=== PATIENT | male | born 1950 | race Caucasian/White ===

== ENCOUNTER 2016-09-05 09:50 | Emergency (ER) | payer MEDICARE | END 2016-09-05 10:27 | disposition home or self-care (01) | LOC: ER1 09:50 | DX: L98.9 Disorder of the skin and subcutaneous tissue, unspecified (principal); I10 Essential (primary) hypertension | CPT/HCPCS: 99282 ==

== ENCOUNTER → 2020-02-27 | Outpatient (CLI) | payer OTHER ==
[~2020-02-27] MED LIST: ADVIL200 MG PO; ALLEGRA-D 24 H1 EACH PO; ASPIRIN EC81 MG PO; HUMALOG 10100 UNITS/ SC; IBUPROFEN800 MG PO; INVANZ 1 GM VIAL1 GM IV; LEVOFLOXACIN500 MG PO; LISINOPRIL40 MG PO; OMNICEF 300 MG300 MG PO
== END ==
LOC: WCC 12:51
PROC: 0KBW0ZZ Excision of Left Foot Muscle, Open Approach (ICD-10-PCS; principal; 2020-02-27)
DX: L97.423 Non-pressure chronic ulcer of left heel and midfoot with necrosis of muscle (principal); E66.09 Other obesity due to excess calories; I89.0 Lymphedema, not elsewhere classified; I10 Essential (primary) hypertension
CPT/HCPCS: 87070; 87077; 87186; 87205; G0463

== ENCOUNTER 2020-03-05 10:28 | Inpatient (IN) | payer OTHER ==
[~2020-03-05] VITALS: Ht 175.3 cm; Wt 116.7 kg
[2020-03-05] MEDS ORDERED: LISINOPRIL40 MG PO (15:26)
[2020-03-05] MEDS ORDERED: ADVIL200 MG PO (15:27)
[2020-03-05 16:28] LABS: HEMOGLOBIN 10.9 gm/dl (14.0-17.5)
[2020-03-05 16:36] LABS: RED BLOOD COUNT 3.96 M/UL (4.20-5.50); WHITE BLOOD COUNT 10.4 K/UL (4.5-11.0)
[2020-03-05 16:57] LABS: BUN/CREATININE RATIO 28 (0-10)
[2020-03-06 03:25] LABS: HEMOGLOBIN 10.9 gm/dl (14.0-17.5); RED BLOOD COUNT 3.97 M/UL (4.20-5.50); WHITE BLOOD COUNT 8.8 K/UL (4.5-11.0)
[2020-03-06 03:49] LABS: BUN/CREATININE RATIO 26 (0-10)
--- NOTE | 2020-03-07 06:18 | NUR ---
pt has vancomycin due at 6am; I called at 0515 to see if it had been collected and she said it would be done on day shift. I explained that he had antibiotic due at 6 am. A 0620 it has still not been collected. Will report to yoel ha.
[2020-03-07 06:53] LABS: HEMOGLOBIN 10.9 gm/dl (14.0-17.5); RED BLOOD COUNT 3.96 M/UL (4.20-5.50); WHITE BLOOD COUNT 7.8 K/UL (4.5-11.0)
[2020-03-08 05:49] LABS: HEMOGLOBIN 10.9 gm/dl (14.0-17.5); RED BLOOD COUNT 3.96 M/UL (4.20-5.50); WHITE BLOOD COUNT 6.2 K/UL (4.5-11.0)
--- NOTE | 2020-03-08 16:58 | NUR ---
WOUND CARE PERFORMED PER MD ORDER. PATIENT TOLERATED WELL.
[2020-03-09 06:23] LABS: HEMOGLOBIN 10.9 gm/dl (14.0-17.5); RED BLOOD COUNT 3.99 M/UL (4.20-5.50); WHITE BLOOD COUNT 9.3 K/UL (4.5-11.0)
[2020-03-09 06:40] LABS: BUN/CREATININE RATIO 25 (0-10)
--- NOTE | 2020-03-09 13:09 | NUR ---
1200: PATIENT ARRIVED TO FLOOR FROM PACU. PATIENT IS ALERT, AND VERBAL. VITAL SIGNS WITHIN NORMAL LIMITS. ANGIO SITE TO RIGHT GROIN IS DRY, NO HEMATOMA, EDEMA, BRUISING, OR BLEEDING NOTED. NO ABNORMALITIES NOTED TO RIGHT WRIST, PAST ART LINE SITE. DRESSINGS TO BILATERAL LEGS ARE CLEAN, DRY, AND IN TACT. NO ACUTE DISTRESS NOTED.
[2020-03-10 06:38] LABS: HEMOGLOBIN 10.5 gm/dl (14.0-17.5); RED BLOOD COUNT 3.82 M/UL (4.20-5.50); WHITE BLOOD COUNT 8.2 K/UL (4.5-11.0)
[2020-03-10] MEDS ORDERED: ASPIRIN EC81 MG PO (09:34)
[2020-03-10] MEDS ORDERED: INVANZ 1 GM VIAL1 GM IV (09:58)
[2020-03-10] MEDS ORDERED: LEVOFLOXACIN500 MG PO (09:58)
--- NOTE | 2020-03-10 16:48 | NUR ---
PATIENT'S WOUND CARE PERFORMED PER DR. RIVAS ORDERS.
[2020-03-11 05:57] LABS: HEMOGLOBIN 10.5 gm/dl (14.0-17.5); RED BLOOD COUNT 3.9 M/UL (4.20-5.50); WHITE BLOOD COUNT 7.5 K/UL (4.5-11.0)
[2020-03-11 06:09] LABS: BUN/CREATININE RATIO 22 (0-10)
[2020-03-12 06:52] LABS: BUN/CREATININE RATIO 19 (0-10)
[2020-03-15 03:02] LABS: BUN/CREATININE RATIO 29 (0-10)
--- NOTE | 2020-03-19 11:21 | NUR ---
PT WAS FIRST ASSESSED AT SHIFT CHANGE AT 0700 EVEN THOUGH DOCUMENTATION FOR ASSESSMENT SHOWS 1055. ARNULFO - RN
[2020-03-19] MEDS ORDERED: HUMALOG 10100 UNITS/ SC (14:50)
[2020-08-13] MEDS ORDERED: LEVOFLOXACIN500 MG PO (11:54)
== END 2020-03-22 12:03 | DRG 623 ==
LOC: M/S 13:39
PROVIDERS: Family Medicine; Internal Medicine; Physician Assistant Medical; Surgery; ADMIT Internal Medicine Infectious Disease
PROC: 02HV33Z Insertion of Infusion Device into Superior Vena Cava, Percutaneous Approach (ICD-10-PCS; 2020-03-10)
PROC: B24BZZZ Ultrasonography of Heart with Aorta (ICD-10-PCS; 2020-03-17)
PROC: B41DZZZ Fluoroscopy of Aorta and Bilateral Lower Extremity Arteries (ICD-10-PCS; principal; 2020-03-21)
PROC: 0KBW0ZZ Excision of Left Foot Muscle, Open Approach (ICD-10-PCS; 2020-03-21)
PROC: 0KU Muscles, Supplement (ICD-10-PCS; 2020-03-21)
DX: E11.69 Type 2 diabetes mellitus with other specified complication (principal); L97.429 Non-pressure chronic ulcer of left heel and midfoot with unspecified severity; M86.672 Other chronic osteomyelitis, left ankle and foot; L03.116 Cellulitis of left lower limb; I96 Gangrene, not elsewhere classified; E11.621 Type 2 diabetes mellitus with foot ulcer; I10 Essential (primary) hypertension; D64.9 Anemia, unspecified; G47.33 Obstructive sleep apnea (adult) (pediatric); I89.0 Lymphedema, not elsewhere classified; E66.9 Obesity, unspecified; Z20.828 Contact with and (suspected) exposure to other viral communicable diseases; E78.5 Hyperlipidemia, unspecified; Z83.3 Family history of diabetes mellitus; Z82.49 Family history of ischemic heart disease and other diseases of the circulatory system; Z91.19 Patient's noncompliance with other medical treatment and regimen; Z79.899 Other long term (current) drug therapy; Z68.38 Body mass index [BMI] 38.0-38.9, adult
CPT/HCPCS: ECHO; 36415; 71045; 73630; 73718; 76000; 80048; 80053; 80061; 80202; 82962; 83036; 83735; 84439; 84443; 85025; 85027; 85610; 86850; 86900; 86901; 87040; 93005; 93306; 93926; 93971; 96372; 96376; 97110-GP-CQ; 97116-GP-CQ; 97161; 97165; C1769; C1887; G0378; G0379; J1335; J1580; J1644; J1650; J2001; J2405; J2543; J2704; J2710; J2720; J3010; J3370; J7030; J7040; J7050; J7070; J7120; Q4133; Q9962; U0002

== ENCOUNTER → 2020-03-05 | Outpatient (CLI) | payer OTHER | LOC: WCC 07:55 | DX: L97.429 Non-pressure chronic ulcer of left heel and midfoot with unspecified severity (principal) ==

== ENCOUNTER → 2020-03-29 | Outpatient (CLI) | payer OTHER | LOC: WCC 08:58 | DX: L97.423 Non-pressure chronic ulcer of left heel and midfoot with necrosis of muscle (principal); I10 Essential (primary) hypertension; I89.0 Lymphedema, not elsewhere classified; E66.09 Other obesity due to excess calories | CPT/HCPCS: 97597; 97598 ==

== ENCOUNTER → 2020-04-02 | Outpatient (CLI) | payer OTHER | LOC: WCC 14:23 | PROC: 0KBW0ZZ Excision of Left Foot Muscle, Open Approach (ICD-10-PCS; principal; 2020-04-02) | DX: E11.621 Type 2 diabetes mellitus with foot ulcer (principal); L97.425 Non-pressure chronic ulcer of left heel and midfoot with muscle involvement without evidence of necrosis ==

== ENCOUNTER → 2020-04-09 | Outpatient (CLI) | payer OTHER | LOC: WCC 14:29 | PROC: 0KBT0ZZ Excision of Left Lower Leg Muscle, Open Approach (ICD-10-PCS; principal; 2020-04-09) | DX: E11.621 Type 2 diabetes mellitus with foot ulcer (principal); L97.423 Non-pressure chronic ulcer of left heel and midfoot with necrosis of muscle; L97.519 Non-pressure chronic ulcer of other part of right foot with unspecified severity; E11.52 Type 2 diabetes mellitus with diabetic peripheral angiopathy with gangrene; I96 Gangrene, not elsewhere classified; I89.0 Lymphedema, not elsewhere classified; I10 Essential (primary) hypertension; G47.30 Sleep apnea, unspecified; E66.09 Other obesity due to excess calories; Z68.32 Body mass index [BMI] 32.0-32.9, adult; Z79.2 Long term (current) use of antibiotics; Z79.899 Other long term (current) drug therapy ==

== ENCOUNTER → 2020-04-16 | Outpatient (CLI) | payer OTHER | LOC: WCC 14:30 | DX: L97.413 Non-pressure chronic ulcer of right heel and midfoot with necrosis of muscle (principal); E66.09 Other obesity due to excess calories; I89.0 Lymphedema, not elsewhere classified; I10 Essential (primary) hypertension; M86.672 Other chronic osteomyelitis, left ankle and foot ==

== ENCOUNTER → 2020-04-23 | Outpatient (CLI) | payer OTHER | LOC: WCC 13:31 | PROC: 0KBW0ZZ Excision of Left Foot Muscle, Open Approach (ICD-10-PCS; principal; 2020-04-23) | DX: E11.621 Type 2 diabetes mellitus with foot ulcer (principal); L97.423 Non-pressure chronic ulcer of left heel and midfoot with necrosis of muscle; E11.52 Type 2 diabetes mellitus with diabetic peripheral angiopathy with gangrene; I96 Gangrene, not elsewhere classified; E11.69 Type 2 diabetes mellitus with other specified complication; M86.8X7 Other osteomyelitis, ankle and foot; I87.2 Venous insufficiency (chronic) (peripheral); I89.0 Lymphedema, not elsewhere classified; I10 Essential (primary) hypertension; G47.30 Sleep apnea, unspecified; E66.09 Other obesity due to excess calories; Z68.32 Body mass index [BMI] 32.0-32.9, adult; Z79.2 Long term (current) use of antibiotics; Z79.899 Other long term (current) drug therapy ==

== ENCOUNTER → 2020-04-26 | Outpatient (CLI) | payer OTHER | LOC: EMI 15:55 | DX: M86.672 Other chronic osteomyelitis, left ankle and foot (principal); M86.8X7 Other osteomyelitis, ankle and foot | CPT/HCPCS: 73718 ==

== ENCOUNTER → 2020-04-30 | Outpatient (CLI) | payer OTHER | LOC: WCC 13:05 | DX: L97.423 Non-pressure chronic ulcer of left heel and midfoot with necrosis of muscle (principal); I89.0 Lymphedema, not elsewhere classified; M86.672 Other chronic osteomyelitis, left ankle and foot; I10 Essential (primary) hypertension; I87.2 Venous insufficiency (chronic) (peripheral); E66.09 Other obesity due to excess calories ==

== ENCOUNTER → 2020-05-14 | Outpatient (CLI) | payer OTHER | LOC: WCC 13:00 | PROC: 0KBW0ZZ Excision of Left Foot Muscle, Open Approach (ICD-10-PCS; principal; 2020-05-14) | PROC: 0KBS0ZZ Excision of Right Lower Leg Muscle, Open Approach (ICD-10-PCS; 2020-05-14) | PROC: 0KBT0ZZ Excision of Left Lower Leg Muscle, Open Approach (ICD-10-PCS; 2020-05-14) | DX: E11.621 Type 2 diabetes mellitus with foot ulcer (principal); L97.423 Non-pressure chronic ulcer of left heel and midfoot with necrosis of muscle; E11.622 Type 2 diabetes mellitus with other skin ulcer; L97.822 Non-pressure chronic ulcer of other part of left lower leg with fat layer exposed; L97.812 Non-pressure chronic ulcer of other part of right lower leg with fat layer exposed; E11.52 Type 2 diabetes mellitus with diabetic peripheral angiopathy with gangrene; I96 Gangrene, not elsewhere classified; E11.69 Type 2 diabetes mellitus with other specified complication; M86.672 Other chronic osteomyelitis, left ankle and foot; I89.0 Lymphedema, not elsewhere classified; I10 Essential (primary) hypertension; I87.2 Venous insufficiency (chronic) (peripheral); E66.09 Other obesity due to excess calories; Z68.32 Body mass index [BMI] 32.0-32.9, adult; Z79.2 Long term (current) use of antibiotics; Z79.899 Other long term (current) drug therapy; G47.30 Sleep apnea, unspecified ==

== ENCOUNTER → 2020-05-21 | Outpatient (CLI) | payer OTHER | LOC: WCC 13:42 | PROC: 0KBT0ZZ Excision of Left Lower Leg Muscle, Open Approach (ICD-10-PCS; principal; 2020-05-21) | PROC: 0KBS0ZZ Excision of Right Lower Leg Muscle, Open Approach (ICD-10-PCS; 2020-05-21) | DX: E11.621 Type 2 diabetes mellitus with foot ulcer (principal); L97.423 Non-pressure chronic ulcer of left heel and midfoot with necrosis of muscle; E11.622 Type 2 diabetes mellitus with other skin ulcer; L97.822 Non-pressure chronic ulcer of other part of left lower leg with fat layer exposed; L97.812 Non-pressure chronic ulcer of other part of right lower leg with fat layer exposed; S91.104A Unspecified open wound of right lesser toe(s) without damage to nail, initial encounter; E11.52 Type 2 diabetes mellitus with diabetic peripheral angiopathy with gangrene; I96 Gangrene, not elsewhere classified; E11.69 Type 2 diabetes mellitus with other specified complication; M86.672 Other chronic osteomyelitis, left ankle and foot; E66.09 Other obesity due to excess calories; I89.0 Lymphedema, not elsewhere classified; I10 Essential (primary) hypertension; I87.2 Venous insufficiency (chronic) (peripheral); G47.30 Sleep apnea, unspecified; Z68.32 Body mass index [BMI] 32.0-32.9, adult; Z79.2 Long term (current) use of antibiotics; Z79.899 Other long term (current) drug therapy; X58.XXXA Exposure to other specified factors, initial encounter ==

== ENCOUNTER → 2020-05-23 | Outpatient (CLI) | payer OTHER | LOC: WCC 12:57 | PROC: 2W1TX6Z Compression of Left Foot using Pressure Dressing (ICD-10-PCS; principal; 2020-05-23) | DX: E11.621 Type 2 diabetes mellitus with foot ulcer (principal); L97.423 Non-pressure chronic ulcer of left heel and midfoot with necrosis of muscle; E11.52 Type 2 diabetes mellitus with diabetic peripheral angiopathy with gangrene; I96 Gangrene, not elsewhere classified; G47.30 Sleep apnea, unspecified; I10 Essential (primary) hypertension; Z79.2 Long term (current) use of antibiotics; Z79.899 Other long term (current) drug therapy ==

== ENCOUNTER → 2020-05-28 | Outpatient (CLI) | payer OTHER | LOC: WCC 13:30 | PROC: 0JBP0ZZ Excision of Left Lower Leg Subcutaneous Tissue and Fascia, Open Approach (ICD-10-PCS; principal; 2020-05-28) | PROC: 0JBN0ZZ Excision of Right Lower Leg Subcutaneous Tissue and Fascia, Open Approach (ICD-10-PCS; principal; 2020-05-28) | PROC: 0KBW0ZZ Excision of Left Foot Muscle, Open Approach (ICD-10-PCS; principal; 2020-05-28) | DX: E11.621 Type 2 diabetes mellitus with foot ulcer (principal); L97.423 Non-pressure chronic ulcer of left heel and midfoot with necrosis of muscle; E11.622 Type 2 diabetes mellitus with other skin ulcer; L97.822 Non-pressure chronic ulcer of other part of left lower leg with fat layer exposed; L97.812 Non-pressure chronic ulcer of other part of right lower leg with fat layer exposed; E11.52 Type 2 diabetes mellitus with diabetic peripheral angiopathy with gangrene; I96 Gangrene, not elsewhere classified; E66.09 Other obesity due to excess calories; I10 Essential (primary) hypertension; E11.69 Type 2 diabetes mellitus with other specified complication; M86.672 Other chronic osteomyelitis, left ankle and foot; I87.2 Venous insufficiency (chronic) (peripheral); I89.0 Lymphedema, not elsewhere classified; Z68.32 Body mass index [BMI] 32.0-32.9, adult; Z79.2 Long term (current) use of antibiotics; Z79.899 Other long term (current) drug therapy ==

== ENCOUNTER → 2020-05-30 | Outpatient (CLI) | payer OTHER | LOC: WCC 15:20 | PROC: 2W1TX6Z Compression of Left Foot using Pressure Dressing (ICD-10-PCS; principal; 2020-05-30) | PROC: 2W1RX6Z Compression of Left Lower Leg using Pressure Dressing (ICD-10-PCS; 2020-05-30) | PROC: 2W1QX6Z Compression of Right Lower Leg using Pressure Dressing (ICD-10-PCS; 2020-05-30) | PROC: 2W1UX6Z Compression of Right Toe using Pressure Dressing (ICD-10-PCS; 2020-05-30) | DX: E11.621 Type 2 diabetes mellitus with foot ulcer (principal); L97.423 Non-pressure chronic ulcer of left heel and midfoot with necrosis of muscle; E11.622 Type 2 diabetes mellitus with other skin ulcer; L97.819 Non-pressure chronic ulcer of other part of right lower leg with unspecified severity; L97.829 Non-pressure chronic ulcer of other part of left lower leg with unspecified severity; S91.104A Unspecified open wound of right lesser toe(s) without damage to nail, initial encounter; E11.52 Type 2 diabetes mellitus with diabetic peripheral angiopathy with gangrene; I96 Gangrene, not elsewhere classified; G47.30 Sleep apnea, unspecified; I10 Essential (primary) hypertension; Z79.2 Long term (current) use of antibiotics; Z79.899 Other long term (current) drug therapy; X58.XXXA Exposure to other specified factors, initial encounter ==

== ENCOUNTER → 2020-05-30 | Outpatient (CLI) | payer OTHER | LOC: MRI 11:55 → HEART 5 11:55 | DX: M86.672 Other chronic osteomyelitis, left ankle and foot (principal); L97.423 Non-pressure chronic ulcer of left heel and midfoot with necrosis of muscle; I87.2 Venous insufficiency (chronic) (peripheral); E66.09 Other obesity due to excess calories; I89.0 Lymphedema, not elsewhere classified; I10 Essential (primary) hypertension; L97.425 Non-pressure chronic ulcer of left heel and midfoot with muscle involvement without evidence of necrosis | CPT/HCPCS: 73718; 93970 ==

== ENCOUNTER → 2020-06-04 | Outpatient (CLI) | payer OTHER | LOC: WCC 13:26 | PROC: 0KBW0ZZ Excision of Left Foot Muscle, Open Approach (ICD-10-PCS; principal; 2020-06-04) | PROC: 2W1RX6Z Compression of Left Lower Leg using Pressure Dressing (ICD-10-PCS; 2020-06-04) | PROC: 2W1QX6Z Compression of Right Lower Leg using Pressure Dressing (ICD-10-PCS; 2020-06-04) | DX: E11.621 Type 2 diabetes mellitus with foot ulcer (principal); L97.423 Non-pressure chronic ulcer of left heel and midfoot with necrosis of muscle; E11.52 Type 2 diabetes mellitus with diabetic peripheral angiopathy with gangrene; I96 Gangrene, not elsewhere classified; E11.622 Type 2 diabetes mellitus with other skin ulcer; L97.829 Non-pressure chronic ulcer of other part of left lower leg with unspecified severity; L97.819 Non-pressure chronic ulcer of other part of right lower leg with unspecified severity; S91.104A Unspecified open wound of right lesser toe(s) without damage to nail, initial encounter; I89.0 Lymphedema, not elsewhere classified; I10 Essential (primary) hypertension; M86.672 Other chronic osteomyelitis, left ankle and foot; G47.30 Sleep apnea, unspecified; I87.2 Venous insufficiency (chronic) (peripheral); E66.09 Other obesity due to excess calories; Z68.32 Body mass index [BMI] 32.0-32.9, adult; Z79.2 Long term (current) use of antibiotics; Z79.899 Other long term (current) drug therapy; X58.XXXA Exposure to other specified factors, initial encounter ==

== ENCOUNTER → 2020-06-11 | Outpatient (CLI) | payer OTHER | LOC: WCC 13:19 | PROC: 2W1QX6Z Compression of Right Lower Leg using Pressure Dressing (ICD-10-PCS; principal; 2020-06-11) | PROC: 0KBW0ZZ Excision of Left Foot Muscle, Open Approach (ICD-10-PCS; principal; 2020-06-11) | PROC: 0KBS0ZZ Excision of Right Lower Leg Muscle, Open Approach (ICD-10-PCS; principal; 2020-06-11) | PROC: 2W1RX6Z Compression of Left Lower Leg using Pressure Dressing (ICD-10-PCS; principal; 2020-06-11) | DX: E11.621 Type 2 diabetes mellitus with foot ulcer (principal); L97.423 Non-pressure chronic ulcer of left heel and midfoot with necrosis of muscle; E11.622 Type 2 diabetes mellitus with other skin ulcer; L97.813 Non-pressure chronic ulcer of other part of right lower leg with necrosis of muscle; S91.104A Unspecified open wound of right lesser toe(s) without damage to nail, initial encounter; L97.823 Non-pressure chronic ulcer of other part of left lower leg with necrosis of muscle; E11.52 Type 2 diabetes mellitus with diabetic peripheral angiopathy with gangrene; I96 Gangrene, not elsewhere classified; I89.0 Lymphedema, not elsewhere classified; I10 Essential (primary) hypertension; G47.30 Sleep apnea, unspecified; I87.2 Venous insufficiency (chronic) (peripheral); E66.09 Other obesity due to excess calories; Z68.32 Body mass index [BMI] 32.0-32.9, adult; Z79.2 Long term (current) use of antibiotics; Z79.899 Other long term (current) drug therapy; X58.XXXA Exposure to other specified factors, initial encounter ==

== ENCOUNTER → 2020-06-18 | Outpatient (CLI) | payer OTHER | LOC: WCC 13:19 | PROC: 0KBS0ZZ Excision of Right Lower Leg Muscle, Open Approach (ICD-10-PCS; principal; 2020-06-18) | PROC: 0KBV0ZZ Excision of Right Foot Muscle, Open Approach (ICD-10-PCS; principal; 2020-06-18) | PROC: 2W1RX6Z Compression of Left Lower Leg using Pressure Dressing (ICD-10-PCS; principal; 2020-06-18) | PROC: 2W1QX6Z Compression of Right Lower Leg using Pressure Dressing (ICD-10-PCS; principal; 2020-06-18) | PROC: 0KBW0ZZ Excision of Left Foot Muscle, Open Approach (ICD-10-PCS; principal; 2020-06-18) | DX: E11.621 Type 2 diabetes mellitus with foot ulcer (principal); L97.423 Non-pressure chronic ulcer of left heel and midfoot with necrosis of muscle; E11.622 Type 2 diabetes mellitus with other skin ulcer; L97.822 Non-pressure chronic ulcer of other part of left lower leg with fat layer exposed; L97.812 Non-pressure chronic ulcer of other part of right lower leg with fat layer exposed; S91.104A Unspecified open wound of right lesser toe(s) without damage to nail, initial encounter; E11.52 Type 2 diabetes mellitus with diabetic peripheral angiopathy with gangrene; I96 Gangrene, not elsewhere classified; E11.69 Type 2 diabetes mellitus with other specified complication; M86.672 Other chronic osteomyelitis, left ankle and foot; I89.0 Lymphedema, not elsewhere classified; I10 Essential (primary) hypertension; G47.30 Sleep apnea, unspecified; I87.2 Venous insufficiency (chronic) (peripheral); E66.09 Other obesity due to excess calories; Z68.32 Body mass index [BMI] 32.0-32.9, adult; Z79.2 Long term (current) use of antibiotics; Z79.899 Other long term (current) drug therapy; X58.XXXA Exposure to other specified factors, initial encounter ==

== ENCOUNTER → 2020-06-21 | Outpatient (CLI) | payer OTHER | LOC: WCC 13:27 | PROC: 2W1RX6Z Compression of Left Lower Leg using Pressure Dressing (ICD-10-PCS; principal; 2020-06-21) | PROC: 2W1QX6Z Compression of Right Lower Leg using Pressure Dressing (ICD-10-PCS; 2020-06-21) | DX: E11.621 Type 2 diabetes mellitus with foot ulcer (principal); L97.423 Non-pressure chronic ulcer of left heel and midfoot with necrosis of muscle; L97.512 Non-pressure chronic ulcer of other part of right foot with fat layer exposed; E11.622 Type 2 diabetes mellitus with other skin ulcer; L97.812 Non-pressure chronic ulcer of other part of right lower leg with fat layer exposed; L97.822 Non-pressure chronic ulcer of other part of left lower leg with fat layer exposed; E11.52 Type 2 diabetes mellitus with diabetic peripheral angiopathy with gangrene; I96 Gangrene, not elsewhere classified; E66.09 Other obesity due to excess calories; I89.0 Lymphedema, not elsewhere classified; I10 Essential (primary) hypertension; E11.69 Type 2 diabetes mellitus with other specified complication; M86.672 Other chronic osteomyelitis, left ankle and foot; I87.2 Venous insufficiency (chronic) (peripheral); G47.30 Sleep apnea, unspecified; Z79.2 Long term (current) use of antibiotics; Z79.899 Other long term (current) drug therapy; Z68.32 Body mass index [BMI] 32.0-32.9, adult ==

== ENCOUNTER → 2020-06-25 | Outpatient (CLI) | payer OTHER | LOC: WCC 13:22 | PROC: 0KBW0ZZ Excision of Left Foot Muscle, Open Approach (ICD-10-PCS; principal; 2020-06-25) | PROC: 0KBS0ZZ Excision of Right Lower Leg Muscle, Open Approach (ICD-10-PCS; 2020-06-25) | PROC: 0KBT0ZZ Excision of Left Lower Leg Muscle, Open Approach (ICD-10-PCS; 2020-06-25) | PROC: 2W1QX6Z Compression of Right Lower Leg using Pressure Dressing (ICD-10-PCS; 2020-06-25) | PROC: 0KBV0ZZ Excision of Right Foot Muscle, Open Approach (ICD-10-PCS; 2020-06-25) | PROC: 2W1RX6Z Compression of Left Lower Leg using Pressure Dressing (ICD-10-PCS; 2020-06-25) | DX: E11.621 Type 2 diabetes mellitus with foot ulcer (principal); L97.423 Non-pressure chronic ulcer of left heel and midfoot with necrosis of muscle; L97.513 Non-pressure chronic ulcer of other part of right foot with necrosis of muscle; E11.622 Type 2 diabetes mellitus with other skin ulcer; L97.823 Non-pressure chronic ulcer of other part of left lower leg with necrosis of muscle; L97.813 Non-pressure chronic ulcer of other part of right lower leg with necrosis of muscle; E11.52 Type 2 diabetes mellitus with diabetic peripheral angiopathy with gangrene; I96 Gangrene, not elsewhere classified; E11.69 Type 2 diabetes mellitus with other specified complication; M86.672 Other chronic osteomyelitis, left ankle and foot; E66.09 Other obesity due to excess calories; I89.0 Lymphedema, not elsewhere classified; I10 Essential (primary) hypertension; G47.30 Sleep apnea, unspecified; I87.2 Venous insufficiency (chronic) (peripheral); Z68.32 Body mass index [BMI] 32.0-32.9, adult; Z79.2 Long term (current) use of antibiotics; Z79.899 Other long term (current) drug therapy ==

== ENCOUNTER → 2020-06-28 | Outpatient (CLI) | payer OTHER | LOC: WCC 12:06 | PROC: 2W1RX6Z Compression of Left Lower Leg using Pressure Dressing (ICD-10-PCS; principal; 2020-06-28) | PROC: 2W1QX6Z Compression of Right Lower Leg using Pressure Dressing (ICD-10-PCS; 2020-06-28) | DX: E11.621 Type 2 diabetes mellitus with foot ulcer (principal); L97.423 Non-pressure chronic ulcer of left heel and midfoot with necrosis of muscle; L97.512 Non-pressure chronic ulcer of other part of right foot with fat layer exposed; E11.622 Type 2 diabetes mellitus with other skin ulcer; L97.822 Non-pressure chronic ulcer of other part of left lower leg with fat layer exposed; L97.812 Non-pressure chronic ulcer of other part of right lower leg with fat layer exposed; E11.52 Type 2 diabetes mellitus with diabetic peripheral angiopathy with gangrene; I96 Gangrene, not elsewhere classified; G47.30 Sleep apnea, unspecified; I10 Essential (primary) hypertension; Z79.2 Long term (current) use of antibiotics; Z79.899 Other long term (current) drug therapy ==

== ENCOUNTER → 2020-07-02 | Outpatient (CLI) | payer OTHER | LOC: WCC 13:20 | DX: E11.621 Type 2 diabetes mellitus with foot ulcer (principal); L97.429 Non-pressure chronic ulcer of left heel and midfoot with unspecified severity; L97.929 Non-pressure chronic ulcer of unspecified part of left lower leg with unspecified severity; L97.919 Non-pressure chronic ulcer of unspecified part of right lower leg with unspecified severity ==

== ENCOUNTER → 2020-07-05 | Outpatient (CLI) | payer OTHER | LOC: WCC 13:46 | PROC: 2W1RX6Z Compression of Left Lower Leg using Pressure Dressing (ICD-10-PCS; principal; 2020-07-05) | PROC: 2W1QX6Z Compression of Right Lower Leg using Pressure Dressing (ICD-10-PCS; 2020-07-05) | DX: E11.621 Type 2 diabetes mellitus with foot ulcer (principal); L97.423 Non-pressure chronic ulcer of left heel and midfoot with necrosis of muscle; L97.512 Non-pressure chronic ulcer of other part of right foot with fat layer exposed; E11.622 Type 2 diabetes mellitus with other skin ulcer; L97.822 Non-pressure chronic ulcer of other part of left lower leg with fat layer exposed; L97.812 Non-pressure chronic ulcer of other part of right lower leg with fat layer exposed; E11.52 Type 2 diabetes mellitus with diabetic peripheral angiopathy with gangrene; I96 Gangrene, not elsewhere classified; I10 Essential (primary) hypertension; G47.30 Sleep apnea, unspecified; Z79.2 Long term (current) use of antibiotics; Z79.899 Other long term (current) drug therapy ==

== ENCOUNTER → 2020-07-09 | Outpatient (CLI) | payer OTHER | LOC: WCC 13:12 | DX: E11.621 Type 2 diabetes mellitus with foot ulcer (principal); L97.425 Non-pressure chronic ulcer of left heel and midfoot with muscle involvement without evidence of necrosis; L97.922 Non-pressure chronic ulcer of unspecified part of left lower leg with fat layer exposed; L97.912 Non-pressure chronic ulcer of unspecified part of right lower leg with fat layer exposed; E11.40 Type 2 diabetes mellitus with diabetic neuropathy, unspecified; I10 Essential (primary) hypertension; E66.09 Other obesity due to excess calories ==

== ENCOUNTER → 2020-07-16 | Outpatient (CLI) | payer OTHER | END | disposition home or self-care (01) | LOC: WCC 13:18 | DX: E11.621 Type 2 diabetes mellitus with foot ulcer (principal); L97.423 Non-pressure chronic ulcer of left heel and midfoot with necrosis of muscle; E66.9 Obesity, unspecified; I89.0 Lymphedema, not elsewhere classified; I10 Essential (primary) hypertension; E11.69 Type 2 diabetes mellitus with other specified complication; M86.672 Other chronic osteomyelitis, left ankle and foot; I87.2 Venous insufficiency (chronic) (peripheral); G47.30 Sleep apnea, unspecified; Z68.32 Body mass index [BMI] 32.0-32.9, adult ==

== ENCOUNTER → 2020-07-19 | Outpatient (CLI) | payer OTHER | LOC: WCC 13:15 | DX: E11.621 Type 2 diabetes mellitus with foot ulcer (principal); L97.429 Non-pressure chronic ulcer of left heel and midfoot with unspecified severity; I10 Essential (primary) hypertension; G47.30 Sleep apnea, unspecified ==

== ENCOUNTER → 2020-07-26 | Outpatient (CLI) | payer OTHER | LOC: WCC 13:40 | DX: E11.621 Type 2 diabetes mellitus with foot ulcer (principal); I87.2 Venous insufficiency (chronic) (peripheral); L97.425 Non-pressure chronic ulcer of left heel and midfoot with muscle involvement without evidence of necrosis; L97.519 Non-pressure chronic ulcer of other part of right foot with unspecified severity; L97.929 Non-pressure chronic ulcer of unspecified part of left lower leg with unspecified severity; L97.919 Non-pressure chronic ulcer of unspecified part of right lower leg with unspecified severity; G47.30 Sleep apnea, unspecified; I10 Essential (primary) hypertension; Z79.899 Other long term (current) drug therapy ==

== ENCOUNTER → 2020-07-30 | Outpatient (CLI) | payer OTHER | LOC: WCC 13:27 | DX: E11.621 Type 2 diabetes mellitus with foot ulcer (principal); L97.423 Non-pressure chronic ulcer of left heel and midfoot with necrosis of muscle; L97.425 Non-pressure chronic ulcer of left heel and midfoot with muscle involvement without evidence of necrosis; E11.69 Type 2 diabetes mellitus with other specified complication; M86.672 Other chronic osteomyelitis, left ankle and foot; I89.0 Lymphedema, not elsewhere classified; I10 Essential (primary) hypertension; I87.2 Venous insufficiency (chronic) (peripheral); E66.09 Other obesity due to excess calories ==

== ENCOUNTER → 2020-08-02 | Outpatient (CLI) | payer OTHER | LOC: WCC 13:12 | DX: E11.621 Type 2 diabetes mellitus with foot ulcer (principal); E11.622 Type 2 diabetes mellitus with other skin ulcer; I87.2 Venous insufficiency (chronic) (peripheral); L97.429 Non-pressure chronic ulcer of left heel and midfoot with unspecified severity; L97.929 Non-pressure chronic ulcer of unspecified part of left lower leg with unspecified severity; L97.919 Non-pressure chronic ulcer of unspecified part of right lower leg with unspecified severity; G47.30 Sleep apnea, unspecified; I10 Essential (primary) hypertension ==

== ENCOUNTER → 2020-08-06 | Outpatient (CLI) | payer OTHER | LOC: WCC 13:08 | DX: E11.621 Type 2 diabetes mellitus with foot ulcer (principal); L97.423 Non-pressure chronic ulcer of left heel and midfoot with necrosis of muscle; E66.09 Other obesity due to excess calories; I10 Essential (primary) hypertension; L97.425 Non-pressure chronic ulcer of left heel and midfoot with muscle involvement without evidence of necrosis; M86.672 Other chronic osteomyelitis, left ankle and foot; I87.2 Venous insufficiency (chronic) (peripheral) ==

== ENCOUNTER → 2020-08-09 | Outpatient (CLI) | payer OTHER | LOC: WCC 13:10 | DX: E11.621 Type 2 diabetes mellitus with foot ulcer (principal); E11.622 Type 2 diabetes mellitus with other skin ulcer; L97.425 Non-pressure chronic ulcer of left heel and midfoot with muscle involvement without evidence of necrosis; L97.929 Non-pressure chronic ulcer of unspecified part of left lower leg with unspecified severity; L97.919 Non-pressure chronic ulcer of unspecified part of right lower leg with unspecified severity; G47.30 Sleep apnea, unspecified; I10 Essential (primary) hypertension | CPT/HCPCS: 87070; 87077; 87186; 87205 ==

== ENCOUNTER → 2020-08-13 | Outpatient (CLI) | payer OTHER | LOC: WCC 13:08 | DX: L97.423 Non-pressure chronic ulcer of left heel and midfoot with necrosis of muscle (principal) ==

== ENCOUNTER 2020-08-16 10:58 | Inpatient (IN) | payer OTHER ==
[~2020-08-16] VITALS: Ht 175.3 cm; Wt 119.9 kg
[~2020-08-16 10:58] MED LIST changes: -ALLEGRA-D 24 H1 EACH PO; -IBUPROFEN800 MG PO; -OMNICEF 300 MG300 MG PO
[2020-08-16 14:53] LABS: HEMOGLOBIN 11.6 gm/dl (14.0-17.5); RED BLOOD COUNT 4.15 M/UL (4.20-5.50); WHITE BLOOD COUNT 9.5 K/UL (4.5-11.0)
[2020-08-17 03:27] LABS: HEMOGLOBIN 11.2 gm/dl (14.0-17.5); RED BLOOD COUNT 4.04 M/UL (4.20-5.50); WHITE BLOOD COUNT 8.1 K/UL (4.5-11.0)
[2020-08-17] MEDS ORDERED: ALLEGRA-D 24 H1 EACH PO (12:39)
[2020-08-17] MEDS ORDERED: ADVIL200 MG PO (12:39)
[2020-08-18 05:20] LABS: HEMOGLOBIN 9.8 gm/dl (14.0-17.5); WHITE BLOOD COUNT 6.4 K/UL (4.5-11.0)
[2020-08-18 05:21] LABS: RED BLOOD COUNT 3.61 M/UL (4.20-5.50)
[2020-08-20] MEDS ORDERED: LEVOFLOXACIN500 MG PO ×2 (12:44→16:09)
--- NOTE | 2020-08-20 14:22 | NUR ---
INSTRUCTED PATIENT ON FOLLOW UP WITH W[facility]ARE [facility] CALL TOMORROW, [facility] AFTER DISCHARGE, AT [facility]. TAKE FIRST DOSE TONIGHT AND COMPLETE ALL ANTIBIOTIC ORDERD FOR 7 DAYS. VERBALIZED UNDERSTANDING. MICHAELA NGUYEN R.N.
== END 2020-08-20 15:11 | disposition home or self-care (01) | DRG 623 ==
LOC: ER1 10:58 → CDU 21:26 → M/S 21:26
PROVIDERS: Internal Medicine; Physician Assistant; ADMIT Family Medicine
PROC: 0JBN0ZZ Excision of Right Lower Leg Subcutaneous Tissue and Fascia, Open Approach (ICD-10-PCS; principal; 2020-08-13)
PROC: 0KBW0ZZ Excision of Left Foot Muscle, Open Approach (ICD-10-PCS; principal; 2020-08-13)
PROC: 0JBP0ZZ Excision of Left Lower Leg Subcutaneous Tissue and Fascia, Open Approach (ICD-10-PCS; principal; 2020-08-13)
DX: E11.621 Type 2 diabetes mellitus with foot ulcer (principal); E11.52 Type 2 diabetes mellitus with diabetic peripheral angiopathy with gangrene; M86.8X7 Other osteomyelitis, ankle and foot; L03.116 Cellulitis of left lower limb; L97.429 Non-pressure chronic ulcer of left heel and midfoot with unspecified severity; Z20.822 Contact with and (suspected) exposure to COVID-19; I89.0 Lymphedema, not elsewhere classified; E66.01 Morbid (severe) obesity due to excess calories; E11.69 Type 2 diabetes mellitus with other specified complication; N17.9 Acute kidney failure, unspecified; Z96.643 Presence of artificial hip joint, bilateral; I10 Essential (primary) hypertension; Z79.4 Long term (current) use of insulin; Z79.82 Long term (current) use of aspirin; Z82.49 Family history of ischemic heart disease and other diseases of the circulatory system; Z83.3 Family history of diabetes mellitus; Z68.39 Body mass index [BMI] 39.0-39.9, adult
CPT/HCPCS: 36415; 71045; 73700; 80048; 80053; 80202; 82962; 83036; 83605; 85025; 85027; 85652; 86140; 87040; 87070; 87077; 87186; 87205; 93971; 96365; 96366; 96367; 96375; 97110; 97116; 97161; 97530; 97530-GP-CQ; 99284; J1650; J1940; J2543; J3370; J7030; J7070; U0002

== ENCOUNTER 2020-08-27 09:22 | Emergency (ER) | payer OTHER ==
[~2020-08-27 09:22] MED LIST changes: -IBUPROFEN800 MG PO; -OMNICEF 300 MG300 MG PO
[2020-08-27 10:19] LABS: HEMOGLOBIN 11.1 gm/dl (14.0-17.5); RED BLOOD COUNT 4.05 M/UL (4.20-5.50); WHITE BLOOD COUNT 17.4 K/UL (4.5-11.0)
[2020-08-27] MEDS ORDERED: IBUPROFEN800 MG PO (13:23)
[2020-08-27] MEDS ORDERED: OMNICEF 300 MG300 MG PO (13:23)
== END 2020-08-27 14:42 | disposition home or self-care (01) ==
LOC: ER1 09:22
PROVIDERS: Emergency Medicine
DX: S22.41XA Multiple fractures of ribs, right side, initial encounter for closed fracture (principal); I87.8 Other specified disorders of veins; E11.9 Type 2 diabetes mellitus without complications; I10 Essential (primary) hypertension; W18.30XA Fall on same level, unspecified, initial encounter; Y92.002 Bathroom of unspecified non-institutional (private) residence as the place of occurrence of the external cause
CPT/HCPCS: 70450; 71045; 80053; 85025; 99284

== ENCOUNTER → 2020-08-27 | Outpatient (CLI) | payer OTHER ==
[~2020-08-27] MED LIST changes: +ALLEGRA-D 24 H1 EACH PO; +IBUPROFEN800 MG PO; +OMNICEF 300 MG300 MG PO
== END ==
LOC: WCC 15:00
DX: E11.621 Type 2 diabetes mellitus with foot ulcer (principal); E11.622 Type 2 diabetes mellitus with other skin ulcer; I87.2 Venous insufficiency (chronic) (peripheral); L97.425 Non-pressure chronic ulcer of left heel and midfoot with muscle involvement without evidence of necrosis; L97.922 Non-pressure chronic ulcer of unspecified part of left lower leg with fat layer exposed; L97.912 Non-pressure chronic ulcer of unspecified part of right lower leg with fat layer exposed; E11.69 Type 2 diabetes mellitus with other specified complication; M86.672 Other chronic osteomyelitis, left ankle and foot; E66.09 Other obesity due to excess calories; I89.0 Lymphedema, not elsewhere classified; I10 Essential (primary) hypertension; Z68.32 Body mass index [BMI] 32.0-32.9, adult; Z79.2 Long term (current) use of antibiotics; Z79.899 Other long term (current) drug therapy

== ENCOUNTER → 2020-08-30 | Outpatient (CLI) | payer OTHER ==
[~2020-08-30] MED LIST changes: +IBUPROFEN800 MG PO; +OMNICEF 300 MG300 MG PO
== END ==
LOC: WCC 13:18
DX: E11.621 Type 2 diabetes mellitus with foot ulcer (principal); E11.622 Type 2 diabetes mellitus with other skin ulcer; L97.422 Non-pressure chronic ulcer of left heel and midfoot with fat layer exposed; L97.929 Non-pressure chronic ulcer of unspecified part of left lower leg with unspecified severity; L97.919 Non-pressure chronic ulcer of unspecified part of right lower leg with unspecified severity; G47.30 Sleep apnea, unspecified; I10 Essential (primary) hypertension

== ENCOUNTER → 2020-09-03 | Outpatient (CLI) | payer OTHER | LOC: WCC 13:28 | DX: E11.621 Type 2 diabetes mellitus with foot ulcer (principal); E11.622 Type 2 diabetes mellitus with other skin ulcer; I87.2 Venous insufficiency (chronic) (peripheral); L97.425 Non-pressure chronic ulcer of left heel and midfoot with muscle involvement without evidence of necrosis; L97.922 Non-pressure chronic ulcer of unspecified part of left lower leg with fat layer exposed; L97.912 Non-pressure chronic ulcer of unspecified part of right lower leg with fat layer exposed; E11.69 Type 2 diabetes mellitus with other specified complication; M86.672 Other chronic osteomyelitis, left ankle and foot; E66.09 Other obesity due to excess calories; I89.0 Lymphedema, not elsewhere classified; I10 Essential (primary) hypertension; Z68.32 Body mass index [BMI] 32.0-32.9, adult; Z79.2 Long term (current) use of antibiotics; Z79.899 Other long term (current) drug therapy | CPT/HCPCS: 87070; 87077; 87186; 87205 ==

== ENCOUNTER → 2020-09-07 | Outpatient (CLI) | payer OTHER | LOC: WCC 10:13 | DX: E11.621 Type 2 diabetes mellitus with foot ulcer (principal); E11.622 Type 2 diabetes mellitus with other skin ulcer; L97.422 Non-pressure chronic ulcer of left heel and midfoot with fat layer exposed; L97.929 Non-pressure chronic ulcer of unspecified part of left lower leg with unspecified severity; L97.919 Non-pressure chronic ulcer of unspecified part of right lower leg with unspecified severity; I10 Essential (primary) hypertension; G47.30 Sleep apnea, unspecified ==

== ENCOUNTER → 2020-09-11 | Outpatient (CLI) | payer OTHER | LOC: WCC 13:31 | DX: E11.621 Type 2 diabetes mellitus with foot ulcer (principal); L97.423 Non-pressure chronic ulcer of left heel and midfoot with necrosis of muscle; E66.09 Other obesity due to excess calories; L97.425 Non-pressure chronic ulcer of left heel and midfoot with muscle involvement without evidence of necrosis; I89.0 Lymphedema, not elsewhere classified; I10 Essential (primary) hypertension; M86.672 Other chronic osteomyelitis, left ankle and foot; I87.2 Venous insufficiency (chronic) (peripheral) ==

== ENCOUNTER → 2020-09-14 | Outpatient (CLI) | payer OTHER | LOC: WCC 11:45 | DX: E11.621 Type 2 diabetes mellitus with foot ulcer (principal); E11.622 Type 2 diabetes mellitus with other skin ulcer; L97.422 Non-pressure chronic ulcer of left heel and midfoot with fat layer exposed; L97.929 Non-pressure chronic ulcer of unspecified part of left lower leg with unspecified severity; L97.919 Non-pressure chronic ulcer of unspecified part of right lower leg with unspecified severity; G47.30 Sleep apnea, unspecified; I10 Essential (primary) hypertension ==

== ENCOUNTER → 2020-09-17 | Outpatient (CLI) | payer OTHER | LOC: WCC 13:30 | PROC: 0KBW0ZZ Excision of Left Foot Muscle, Open Approach (ICD-10-PCS; principal; 2020-09-17) | PROC: 0KBS0ZZ Excision of Right Lower Leg Muscle, Open Approach (ICD-10-PCS; 2020-09-17) | PROC: 0KBT0ZZ Excision of Left Lower Leg Muscle, Open Approach (ICD-10-PCS; 2020-09-17) | PROC: 0JBN0ZZ Excision of Right Lower Leg Subcutaneous Tissue and Fascia, Open Approach (ICD-10-PCS; 2020-09-17) | PROC: 2W1RX6Z Compression of Left Lower Leg using Pressure Dressing (ICD-10-PCS; 2020-09-17) | PROC: 2W1QX6Z Compression of Right Lower Leg using Pressure Dressing (ICD-10-PCS; 2020-09-17) | DX: E11.621 Type 2 diabetes mellitus with foot ulcer (principal); L97.423 Non-pressure chronic ulcer of left heel and midfoot with necrosis of muscle; E11.622 Type 2 diabetes mellitus with other skin ulcer; L97.822 Non-pressure chronic ulcer of other part of left lower leg with fat layer exposed; L97.812 Non-pressure chronic ulcer of other part of right lower leg with fat layer exposed; E11.52 Type 2 diabetes mellitus with diabetic peripheral angiopathy with gangrene; I96 Gangrene, not elsewhere classified; I89.0 Lymphedema, not elsewhere classified; I10 Essential (primary) hypertension; E11.69 Type 2 diabetes mellitus with other specified complication; M86.672 Other chronic osteomyelitis, left ankle and foot; I87.2 Venous insufficiency (chronic) (peripheral); E66.09 Other obesity due to excess calories; Z68.32 Body mass index [BMI] 32.0-32.9, adult; Z79.2 Long term (current) use of antibiotics; Z79.899 Other long term (current) drug therapy; G47.30 Sleep apnea, unspecified ==

== ENCOUNTER → 2020-09-20 | Outpatient (CLI) | payer MEDICARE, OTHER | LOC: WCC 13:18 | PROC: 2W1RX6Z Compression of Left Lower Leg using Pressure Dressing (ICD-10-PCS; principal; 2020-09-20) | PROC: 2W1QX6Z Compression of Right Lower Leg using Pressure Dressing (ICD-10-PCS; 2020-09-20) | DX: E11.621 Type 2 diabetes mellitus with foot ulcer (principal); L97.423 Non-pressure chronic ulcer of left heel and midfoot with necrosis of muscle; E11.622 Type 2 diabetes mellitus with other skin ulcer; L97.811 Non-pressure chronic ulcer of other part of right lower leg limited to breakdown of skin; L97.821 Non-pressure chronic ulcer of other part of left lower leg limited to breakdown of skin; E11.52 Type 2 diabetes mellitus with diabetic peripheral angiopathy with gangrene; I96 Gangrene, not elsewhere classified; G47.30 Sleep apnea, unspecified; I10 Essential (primary) hypertension; Z79.2 Long term (current) use of antibiotics; Z79.899 Other long term (current) drug therapy ==

== ENCOUNTER → 2020-09-25 | Outpatient (CLI) | payer MEDICARE, OTHER | LOC: WCC 09:54 | PROC: 2W1RX6Z Compression of Left Lower Leg using Pressure Dressing (ICD-10-PCS; principal; 2020-09-25) | PROC: 0JBP0ZZ Excision of Left Lower Leg Subcutaneous Tissue and Fascia, Open Approach (ICD-10-PCS; principal; 2020-09-25) | PROC: 0JBN0ZZ Excision of Right Lower Leg Subcutaneous Tissue and Fascia, Open Approach (ICD-10-PCS; principal; 2020-09-25) | PROC: 2W1QX6Z Compression of Right Lower Leg using Pressure Dressing (ICD-10-PCS; principal; 2020-09-25) | PROC: 0KBW0ZZ Excision of Left Foot Muscle, Open Approach (ICD-10-PCS; principal; 2020-09-25) | DX: E11.622 Type 2 diabetes mellitus with other skin ulcer (principal); L97.822 Non-pressure chronic ulcer of other part of left lower leg with fat layer exposed; L97.812 Non-pressure chronic ulcer of other part of right lower leg with fat layer exposed; E11.621 Type 2 diabetes mellitus with foot ulcer; L97.423 Non-pressure chronic ulcer of left heel and midfoot with necrosis of muscle; E11.52 Type 2 diabetes mellitus with diabetic peripheral angiopathy with gangrene; I96 Gangrene, not elsewhere classified; I89.0 Lymphedema, not elsewhere classified; I10 Essential (primary) hypertension; E11.69 Type 2 diabetes mellitus with other specified complication; M86.672 Other chronic osteomyelitis, left ankle and foot; I87.2 Venous insufficiency (chronic) (peripheral); G47.30 Sleep apnea, unspecified; E66.09 Other obesity due to excess calories; Z68.32 Body mass index [BMI] 32.0-32.9, adult; Z79.2 Long term (current) use of antibiotics; Z79.899 Other long term (current) drug therapy ==

== ENCOUNTER → 2020-09-28 | Outpatient (CLI) | payer MEDICARE, OTHER | LOC: WCC 09:31 | PROC: 2W1RX6Z Compression of Left Lower Leg using Pressure Dressing (ICD-10-PCS; principal; 2020-09-28) | PROC: 2W1QX6Z Compression of Right Lower Leg using Pressure Dressing (ICD-10-PCS; 2020-09-28) | DX: E11.621 Type 2 diabetes mellitus with foot ulcer (principal); L97.423 Non-pressure chronic ulcer of left heel and midfoot with necrosis of muscle; E11.622 Type 2 diabetes mellitus with other skin ulcer; L97.821 Non-pressure chronic ulcer of other part of left lower leg limited to breakdown of skin; L97.811 Non-pressure chronic ulcer of other part of right lower leg limited to breakdown of skin; E11.52 Type 2 diabetes mellitus with diabetic peripheral angiopathy with gangrene; I96 Gangrene, not elsewhere classified; G47.30 Sleep apnea, unspecified; I10 Essential (primary) hypertension; Z79.899 Other long term (current) drug therapy ==

== ENCOUNTER → 2020-10-01 | Outpatient (CLI) | payer MEDICARE, OTHER | LOC: WCC 13:28 | PROC: 0KBW0ZZ Excision of Left Foot Muscle, Open Approach (ICD-10-PCS; principal; 2020-10-01) | PROC: 2W1RX6Z Compression of Left Lower Leg using Pressure Dressing (ICD-10-PCS; 2020-10-01) | PROC: 2W1QX6Z Compression of Right Lower Leg using Pressure Dressing (ICD-10-PCS; 2020-10-01) | PROC: 0JBP0ZZ Excision of Left Lower Leg Subcutaneous Tissue and Fascia, Open Approach (ICD-10-PCS; 2020-10-01) | PROC: 0JBN0ZZ Excision of Right Lower Leg Subcutaneous Tissue and Fascia, Open Approach (ICD-10-PCS; 2020-10-01) | DX: E11.622 Type 2 diabetes mellitus with other skin ulcer (principal); L97.822 Non-pressure chronic ulcer of other part of left lower leg with fat layer exposed; L97.812 Non-pressure chronic ulcer of other part of right lower leg with fat layer exposed; E11.621 Type 2 diabetes mellitus with foot ulcer; L97.423 Non-pressure chronic ulcer of left heel and midfoot with necrosis of muscle; E11.52 Type 2 diabetes mellitus with diabetic peripheral angiopathy with gangrene; I96 Gangrene, not elsewhere classified; I89.0 Lymphedema, not elsewhere classified; E11.69 Type 2 diabetes mellitus with other specified complication; M86.672 Other chronic osteomyelitis, left ankle and foot; I10 Essential (primary) hypertension; I87.2 Venous insufficiency (chronic) (peripheral); G47.30 Sleep apnea, unspecified; E66.09 Other obesity due to excess calories; Z68.32 Body mass index [BMI] 32.0-32.9, adult; Z79.899 Other long term (current) drug therapy ==

== ENCOUNTER → 2020-10-05 | Outpatient (CLI) | payer MEDICARE, OTHER | LOC: WCC 09:30 | PROC: 2W1RX6Z Compression of Left Lower Leg using Pressure Dressing (ICD-10-PCS; principal; 2020-10-05) | PROC: 2W1QX6Z Compression of Right Lower Leg using Pressure Dressing (ICD-10-PCS; 2020-10-05) | DX: E11.621 Type 2 diabetes mellitus with foot ulcer (principal); L97.423 Non-pressure chronic ulcer of left heel and midfoot with necrosis of muscle; E11.622 Type 2 diabetes mellitus with other skin ulcer; L97.821 Non-pressure chronic ulcer of other part of left lower leg limited to breakdown of skin; L97.811 Non-pressure chronic ulcer of other part of right lower leg limited to breakdown of skin; I96 Gangrene, not elsewhere classified; E11.52 Type 2 diabetes mellitus with diabetic peripheral angiopathy with gangrene; G47.30 Sleep apnea, unspecified; I10 Essential (primary) hypertension; Z79.899 Other long term (current) drug therapy ==

== ENCOUNTER → 2020-10-15 | Outpatient (CLI) | payer MEDICARE, OTHER | LOC: WCC 12:16 | PROC: 0JBR0ZZ Excision of Left Foot Subcutaneous Tissue and Fascia, Open Approach (ICD-10-PCS; principal; 2020-10-15) | PROC: 0JBP0ZZ Excision of Left Lower Leg Subcutaneous Tissue and Fascia, Open Approach (ICD-10-PCS; principal; 2020-10-15) | PROC: 2W1QX6Z Compression of Right Lower Leg using Pressure Dressing (ICD-10-PCS; principal; 2020-10-15) | PROC: 0JBN0ZZ Excision of Right Lower Leg Subcutaneous Tissue and Fascia, Open Approach (ICD-10-PCS; principal; 2020-10-15) | PROC: 2W1RX6Z Compression of Left Lower Leg using Pressure Dressing (ICD-10-PCS; principal; 2020-10-15) | DX: E11.621 Type 2 diabetes mellitus with foot ulcer (principal); L97.425 Non-pressure chronic ulcer of left heel and midfoot with muscle involvement without evidence of necrosis; E11.622 Type 2 diabetes mellitus with other skin ulcer; L97.822 Non-pressure chronic ulcer of other part of left lower leg with fat layer exposed; L97.812 Non-pressure chronic ulcer of other part of right lower leg with fat layer exposed; E11.69 Type 2 diabetes mellitus with other specified complication; M86.672 Other chronic osteomyelitis, left ankle and foot; I89.0 Lymphedema, not elsewhere classified; I10 Essential (primary) hypertension; I87.2 Venous insufficiency (chronic) (peripheral); G47.30 Sleep apnea, unspecified; E66.09 Other obesity due to excess calories; Z68.32 Body mass index [BMI] 32.0-32.9, adult; Z79.899 Other long term (current) drug therapy ==

== ENCOUNTER → 2020-10-22 | Outpatient (CLI) | payer MEDICARE, OTHER | LOC: WCC 12:35 | PROC: 0JBR0ZZ Excision of Left Foot Subcutaneous Tissue and Fascia, Open Approach (ICD-10-PCS; principal; 2020-10-22) | PROC: 0JBN0ZZ Excision of Right Lower Leg Subcutaneous Tissue and Fascia, Open Approach (ICD-10-PCS; 2020-10-22) | PROC: 0JBP0ZZ Excision of Left Lower Leg Subcutaneous Tissue and Fascia, Open Approach (ICD-10-PCS; 2020-10-22) | DX: E11.621 Type 2 diabetes mellitus with foot ulcer (principal); L97.425 Non-pressure chronic ulcer of left heel and midfoot with muscle involvement without evidence of necrosis; E11.622 Type 2 diabetes mellitus with other skin ulcer; L97.812 Non-pressure chronic ulcer of other part of right lower leg with fat layer exposed; L97.822 Non-pressure chronic ulcer of other part of left lower leg with fat layer exposed; I89.0 Lymphedema, not elsewhere classified; I87.2 Venous insufficiency (chronic) (peripheral); I10 Essential (primary) hypertension; G47.30 Sleep apnea, unspecified; E11.69 Type 2 diabetes mellitus with other specified complication; M86.672 Other chronic osteomyelitis, left ankle and foot; E66.09 Other obesity due to excess calories; Z68.32 Body mass index [BMI] 32.0-32.9, adult; Z79.899 Other long term (current) drug therapy ==

== ENCOUNTER → 2020-10-29 | Outpatient (CLI) | payer MEDICARE, OTHER | LOC: WCC 13:24 | PROC: 0JBR0ZZ Excision of Left Foot Subcutaneous Tissue and Fascia, Open Approach (ICD-10-PCS; principal; 2020-10-29) | PROC: 0JBN0ZZ Excision of Right Lower Leg Subcutaneous Tissue and Fascia, Open Approach (ICD-10-PCS; 2020-10-29) | PROC: 0JBP0ZZ Excision of Left Lower Leg Subcutaneous Tissue and Fascia, Open Approach (ICD-10-PCS; 2020-10-29) | DX: E11.621 Type 2 diabetes mellitus with foot ulcer (principal); L97.422 Non-pressure chronic ulcer of left heel and midfoot with fat layer exposed; E11.622 Type 2 diabetes mellitus with other skin ulcer; L97.822 Non-pressure chronic ulcer of other part of left lower leg with fat layer exposed; L97.812 Non-pressure chronic ulcer of other part of right lower leg with fat layer exposed; I87.2 Venous insufficiency (chronic) (peripheral); G47.30 Sleep apnea, unspecified; E11.69 Type 2 diabetes mellitus with other specified complication; M86.672 Other chronic osteomyelitis, left ankle and foot; I10 Essential (primary) hypertension; I89.0 Lymphedema, not elsewhere classified; E66.09 Other obesity due to excess calories; Z68.32 Body mass index [BMI] 32.0-32.9, adult; Z79.899 Other long term (current) drug therapy ==

== ENCOUNTER → 2020-11-05 | Outpatient (CLI) | payer MEDICARE, OTHER | LOC: WCC 13:13 | PROC: 0JBR0ZZ Excision of Left Foot Subcutaneous Tissue and Fascia, Open Approach (ICD-10-PCS; principal; 2020-11-05) | PROC: 0KBS0ZZ Excision of Right Lower Leg Muscle, Open Approach (ICD-10-PCS; 2020-11-05) | PROC: 0JBP0ZZ Excision of Left Lower Leg Subcutaneous Tissue and Fascia, Open Approach (ICD-10-PCS; 2020-11-05) | DX: E11.621 Type 2 diabetes mellitus with foot ulcer (principal); L97.423 Non-pressure chronic ulcer of left heel and midfoot with necrosis of muscle; E11.622 Type 2 diabetes mellitus with other skin ulcer; L97.822 Non-pressure chronic ulcer of other part of left lower leg with fat layer exposed; L97.812 Non-pressure chronic ulcer of other part of right lower leg with fat layer exposed; E11.52 Type 2 diabetes mellitus with diabetic peripheral angiopathy with gangrene; I96 Gangrene, not elsewhere classified; I89.0 Lymphedema, not elsewhere classified; I10 Essential (primary) hypertension; E11.69 Type 2 diabetes mellitus with other specified complication; M86.672 Other chronic osteomyelitis, left ankle and foot; G47.30 Sleep apnea, unspecified; E66.09 Other obesity due to excess calories; Z68.32 Body mass index [BMI] 32.0-32.9, adult; Z79.899 Other long term (current) drug therapy ==

== ENCOUNTER → 2020-11-12 | Outpatient (CLI) | payer MEDICARE | LOC: WCC 13:22 | PROC: 0JBR0ZZ Excision of Left Foot Subcutaneous Tissue and Fascia, Open Approach (ICD-10-PCS; principal; 2020-11-12) | PROC: 0JBN0ZZ Excision of Right Lower Leg Subcutaneous Tissue and Fascia, Open Approach (ICD-10-PCS; 2020-11-12) | PROC: 0JBP0ZZ Excision of Left Lower Leg Subcutaneous Tissue and Fascia, Open Approach (ICD-10-PCS; 2020-11-12) | DX: E11.621 Type 2 diabetes mellitus with foot ulcer (principal); L97.423 Non-pressure chronic ulcer of left heel and midfoot with necrosis of muscle; E11.622 Type 2 diabetes mellitus with other skin ulcer; L97.822 Non-pressure chronic ulcer of other part of left lower leg with fat layer exposed; L97.812 Non-pressure chronic ulcer of other part of right lower leg with fat layer exposed; E11.52 Type 2 diabetes mellitus with diabetic peripheral angiopathy with gangrene; I96 Gangrene, not elsewhere classified; E11.69 Type 2 diabetes mellitus with other specified complication; M86.672 Other chronic osteomyelitis, left ankle and foot; I87.2 Venous insufficiency (chronic) (peripheral); I89.0 Lymphedema, not elsewhere classified; I10 Essential (primary) hypertension; G47.30 Sleep apnea, unspecified; E66.09 Other obesity due to excess calories; Z68.32 Body mass index [BMI] 32.0-32.9, adult; Z79.899 Other long term (current) drug therapy ==

== ENCOUNTER → 2020-11-15 | Outpatient (CLI) | payer MEDICARE, OTHER | LOC: WCC 13:45 | PROC: 2W1RX6Z Compression of Left Lower Leg using Pressure Dressing (ICD-10-PCS; principal; 2020-11-15) | PROC: 2W1QX6Z Compression of Right Lower Leg using Pressure Dressing (ICD-10-PCS; 2020-11-15) | DX: E11.621 Type 2 diabetes mellitus with foot ulcer (principal); L97.423 Non-pressure chronic ulcer of left heel and midfoot with necrosis of muscle; E11.622 Type 2 diabetes mellitus with other skin ulcer; L97.822 Non-pressure chronic ulcer of other part of left lower leg with fat layer exposed; L97.812 Non-pressure chronic ulcer of other part of right lower leg with fat layer exposed; E11.52 Type 2 diabetes mellitus with diabetic peripheral angiopathy with gangrene; I96 Gangrene, not elsewhere classified; G47.30 Sleep apnea, unspecified; I10 Essential (primary) hypertension; Z79.899 Other long term (current) drug therapy ==

== ENCOUNTER → 2020-11-29 | Outpatient (CLI) | payer MEDICARE, OTHER | LOC: WCC 13:00 | DX: E11.621 Type 2 diabetes mellitus with foot ulcer (principal); E11.622 Type 2 diabetes mellitus with other skin ulcer; I87.2 Venous insufficiency (chronic) (peripheral); L97.425 Non-pressure chronic ulcer of left heel and midfoot with muscle involvement without evidence of necrosis; L97.922 Non-pressure chronic ulcer of unspecified part of left lower leg with fat layer exposed; L97.912 Non-pressure chronic ulcer of unspecified part of right lower leg with fat layer exposed; E11.69 Type 2 diabetes mellitus with other specified complication; M86.672 Other chronic osteomyelitis, left ankle and foot; E66.09 Other obesity due to excess calories; I89.0 Lymphedema, not elsewhere classified; I10 Essential (primary) hypertension; Z68.32 Body mass index [BMI] 32.0-32.9, adult; Z79.899 Other long term (current) drug therapy ==

== ENCOUNTER → 2020-12-03 | Outpatient (CLI) | payer MEDICARE, OTHER | LOC: WCC 10:16 | DX: E11.621 Type 2 diabetes mellitus with foot ulcer (principal); E11.622 Type 2 diabetes mellitus with other skin ulcer; I87.2 Venous insufficiency (chronic) (peripheral); L97.425 Non-pressure chronic ulcer of left heel and midfoot with muscle involvement without evidence of necrosis; L97.922 Non-pressure chronic ulcer of unspecified part of left lower leg with fat layer exposed; L97.912 Non-pressure chronic ulcer of unspecified part of right lower leg with fat layer exposed; E11.69 Type 2 diabetes mellitus with other specified complication; M86.672 Other chronic osteomyelitis, left ankle and foot; I89.0 Lymphedema, not elsewhere classified; I10 Essential (primary) hypertension; E66.09 Other obesity due to excess calories; Z68.32 Body mass index [BMI] 32.0-32.9, adult; Z79.899 Other long term (current) drug therapy ==

== ENCOUNTER → 2020-12-10 | Outpatient (CLI) | payer MEDICARE, OTHER | LOC: WCC 11:41 | DX: E11.621 Type 2 diabetes mellitus with foot ulcer (principal); L97.425 Non-pressure chronic ulcer of left heel and midfoot with muscle involvement without evidence of necrosis; I87.2 Venous insufficiency (chronic) (peripheral); L97.912 Non-pressure chronic ulcer of unspecified part of right lower leg with fat layer exposed; L97.921 Non-pressure chronic ulcer of unspecified part of left lower leg limited to breakdown of skin; I10 Essential (primary) hypertension; Z91.19 Patient's noncompliance with other medical treatment and regimen; I89.0 Lymphedema, not elsewhere classified; E11.69 Type 2 diabetes mellitus with other specified complication; M86.672 Other chronic osteomyelitis, left ankle and foot; E66.09 Other obesity due to excess calories; Z68.32 Body mass index [BMI] 32.0-32.9, adult ==

== ENCOUNTER → 2020-12-13 | Outpatient (CLI) | payer MEDICARE, OTHER | LOC: WCC 08:51 | DX: E11.621 Type 2 diabetes mellitus with foot ulcer (principal); L97.422 Non-pressure chronic ulcer of left heel and midfoot with fat layer exposed; L97.821 Non-pressure chronic ulcer of other part of left lower leg limited to breakdown of skin; G47.30 Sleep apnea, unspecified; I10 Essential (primary) hypertension ==

== ENCOUNTER → 2020-12-17 | Outpatient (CLI) | payer MEDICARE, OTHER | LOC: WCC 09:38 | DX: E11.621 Type 2 diabetes mellitus with foot ulcer (principal); L97.525 Non-pressure chronic ulcer of other part of left foot with muscle involvement without evidence of necrosis; I87.2 Venous insufficiency (chronic) (peripheral); L97.922 Non-pressure chronic ulcer of unspecified part of left lower leg with fat layer exposed; L97.912 Non-pressure chronic ulcer of unspecified part of right lower leg with fat layer exposed; L97.425 Non-pressure chronic ulcer of left heel and midfoot with muscle involvement without evidence of necrosis; E66.09 Other obesity due to excess calories; I10 Essential (primary) hypertension; I89.0 Lymphedema, not elsewhere classified; E11.69 Type 2 diabetes mellitus with other specified complication; M86.672 Other chronic osteomyelitis, left ankle and foot ==

== ENCOUNTER → 2020-12-20 | Outpatient (CLI) | payer MEDICARE, OTHER | LOC: WCC 13:43 | DX: E11.621 Type 2 diabetes mellitus with foot ulcer (principal); E11.622 Type 2 diabetes mellitus with other skin ulcer; L97.425 Non-pressure chronic ulcer of left heel and midfoot with muscle involvement without evidence of necrosis; I87.2 Venous insufficiency (chronic) (peripheral); L97.922 Non-pressure chronic ulcer of unspecified part of left lower leg with fat layer exposed; L97.912 Non-pressure chronic ulcer of unspecified part of right lower leg with fat layer exposed; I10 Essential (primary) hypertension; G47.30 Sleep apnea, unspecified ==

== ENCOUNTER → 2020-12-24 | Outpatient (CLI) | payer MEDICARE, OTHER | LOC: WCC 13:15 | DX: E11.621 Type 2 diabetes mellitus with foot ulcer (principal); E11.622 Type 2 diabetes mellitus with other skin ulcer; I87.2 Venous insufficiency (chronic) (peripheral); L97.425 Non-pressure chronic ulcer of left heel and midfoot with muscle involvement without evidence of necrosis; L97.925 Non-pressure chronic ulcer of unspecified part of left lower leg with muscle involvement without evidence of necrosis; L97.915 Non-pressure chronic ulcer of unspecified part of right lower leg with muscle involvement without evidence of necrosis; E11.69 Type 2 diabetes mellitus with other specified complication; M86.672 Other chronic osteomyelitis, left ankle and foot; E66.09 Other obesity due to excess calories; I89.0 Lymphedema, not elsewhere classified; I10 Essential (primary) hypertension; Z68.32 Body mass index [BMI] 32.0-32.9, adult; Z79.899 Other long term (current) drug therapy ==

== ENCOUNTER → 2020-12-27 | Outpatient (CLI) | payer OTHER | LOC: WCC 11:52 | DX: E11.621 Type 2 diabetes mellitus with foot ulcer (principal); E11.622 Type 2 diabetes mellitus with other skin ulcer; I87.2 Venous insufficiency (chronic) (peripheral); L97.425 Non-pressure chronic ulcer of left heel and midfoot with muscle involvement without evidence of necrosis; L97.922 Non-pressure chronic ulcer of unspecified part of left lower leg with fat layer exposed; L97.912 Non-pressure chronic ulcer of unspecified part of right lower leg with fat layer exposed; I10 Essential (primary) hypertension; G47.30 Sleep apnea, unspecified; Z79.899 Other long term (current) drug therapy ==

== ENCOUNTER → 2020-12-31 | Outpatient (CLI) | payer OTHER | LOC: OPSV 14:00 | DX: L97.423 Non-pressure chronic ulcer of left heel and midfoot with necrosis of muscle (principal); I89.0 Lymphedema, not elsewhere classified; I87.2 Venous insufficiency (chronic) (peripheral) | CPT/HCPCS: G0463 ==

== ENCOUNTER → 2021-01-03 | Outpatient (CLI) | payer OTHER | LOC: OPSV 01-02 14:00 | DX: L97.423 Non-pressure chronic ulcer of left heel and midfoot with necrosis of muscle (principal); I89.0 Lymphedema, not elsewhere classified; I87.2 Venous insufficiency (chronic) (peripheral) | CPT/HCPCS: G0463 ==

== ENCOUNTER → 2021-01-07 | Outpatient (CLI) | payer OTHER | LOC: WCC 14:27 | DX: I87.2 Venous insufficiency (chronic) (peripheral) (principal); L97.922 Non-pressure chronic ulcer of unspecified part of left lower leg with fat layer exposed; L97.912 Non-pressure chronic ulcer of unspecified part of right lower leg with fat layer exposed; E11.621 Type 2 diabetes mellitus with foot ulcer; L97.425 Non-pressure chronic ulcer of left heel and midfoot with muscle involvement without evidence of necrosis; I10 Essential (primary) hypertension; E66.09 Other obesity due to excess calories; I89.0 Lymphedema, not elsewhere classified; E11.69 Type 2 diabetes mellitus with other specified complication; M86.672 Other chronic osteomyelitis, left ankle and foot ==

== ENCOUNTER → 2021-01-10 | Outpatient (CLI) | payer OTHER | LOC: WCC 14:30 | DX: L97.429 Non-pressure chronic ulcer of left heel and midfoot with unspecified severity (principal); L97.829 Non-pressure chronic ulcer of other part of left lower leg with unspecified severity; L97.819 Non-pressure chronic ulcer of other part of right lower leg with unspecified severity; I89.0 Lymphedema, not elsewhere classified; Z79.899 Other long term (current) drug therapy ==

== ENCOUNTER → 2021-01-14 | Outpatient (CLI) | payer OTHER | LOC: WCC 13:43 | DX: E11.621 Type 2 diabetes mellitus with foot ulcer (principal); E11.69 Type 2 diabetes mellitus with other specified complication; L97.425 Non-pressure chronic ulcer of left heel and midfoot with muscle involvement without evidence of necrosis; L97.922 Non-pressure chronic ulcer of unspecified part of left lower leg with fat layer exposed; L97.912 Non-pressure chronic ulcer of unspecified part of right lower leg with fat layer exposed; M86.672 Other chronic osteomyelitis, left ankle and foot; I87.2 Venous insufficiency (chronic) (peripheral); E66.09 Other obesity due to excess calories; Z68.32 Body mass index [BMI] 32.0-32.9, adult; I89.0 Lymphedema, not elsewhere classified; I10 Essential (primary) hypertension ==

== ENCOUNTER → 2021-01-17 | Outpatient (CLI) | payer OTHER | LOC: WCC 13:16 | DX: E11.621 Type 2 diabetes mellitus with foot ulcer (principal); L97.429 Non-pressure chronic ulcer of left heel and midfoot with unspecified severity; E11.628 Type 2 diabetes mellitus with other skin complications; L97.829 Non-pressure chronic ulcer of other part of left lower leg with unspecified severity; L97.819 Non-pressure chronic ulcer of other part of right lower leg with unspecified severity; I10 Essential (primary) hypertension; G47.30 Sleep apnea, unspecified ==

== ENCOUNTER → 2021-01-21 | Outpatient (CLI) | payer OTHER | LOC: WCC 11:24 | DX: E11.621 Type 2 diabetes mellitus with foot ulcer (principal); L97.425 Non-pressure chronic ulcer of left heel and midfoot with muscle involvement without evidence of necrosis; I87.2 Venous insufficiency (chronic) (peripheral); L97.922 Non-pressure chronic ulcer of unspecified part of left lower leg with fat layer exposed; I10 Essential (primary) hypertension; Z68.32 Body mass index [BMI] 32.0-32.9, adult; I89.0 Lymphedema, not elsewhere classified; M86.672 Other chronic osteomyelitis, left ankle and foot | CPT/HCPCS: 87070; 87205 ==

== ENCOUNTER → 2021-01-24 | Outpatient (CLI) | payer OTHER | LOC: WCC 13:26 | DX: I87.2 Venous insufficiency (chronic) (peripheral) (principal); S81.802A Unspecified open wound, left lower leg, initial encounter; S91.302A Unspecified open wound, left foot, initial encounter ==

== ENCOUNTER → 2021-01-28 | Outpatient (CLI) | payer OTHER | END | disposition home or self-care (01) | LOC: WCC 11:38 | DX: E11.621 Type 2 diabetes mellitus with foot ulcer (principal); L97.425 Non-pressure chronic ulcer of left heel and midfoot with muscle involvement without evidence of necrosis; L97.922 Non-pressure chronic ulcer of unspecified part of left lower leg with fat layer exposed; I87.2 Venous insufficiency (chronic) (peripheral); E66.09 Other obesity due to excess calories; I89.0 Lymphedema, not elsewhere classified; I10 Essential (primary) hypertension; M86.672 Other chronic osteomyelitis, left ankle and foot; Z68.32 Body mass index [BMI] 32.0-32.9, adult ==

== ENCOUNTER → 2021-01-31 | Outpatient (CLI) | payer OTHER | LOC: WCC 08:40 | DX: E11.621 Type 2 diabetes mellitus with foot ulcer (principal); E11.622 Type 2 diabetes mellitus with other skin ulcer; I87.2 Venous insufficiency (chronic) (peripheral); L97.425 Non-pressure chronic ulcer of left heel and midfoot with muscle involvement without evidence of necrosis; L97.922 Non-pressure chronic ulcer of unspecified part of left lower leg with fat layer exposed; I10 Essential (primary) hypertension; G47.30 Sleep apnea, unspecified ==

== ENCOUNTER → 2021-02-04 | Outpatient (CLI) | payer OTHER | END | disposition home or self-care (01) | LOC: WCC 11:11 | DX: E11.621 Type 2 diabetes mellitus with foot ulcer (principal); L97.425 Non-pressure chronic ulcer of left heel and midfoot with muscle involvement without evidence of necrosis; I87.2 Venous insufficiency (chronic) (peripheral); L97.922 Non-pressure chronic ulcer of unspecified part of left lower leg with fat layer exposed; M86.672 Other chronic osteomyelitis, left ankle and foot; I10 Essential (primary) hypertension; I89.0 Lymphedema, not elsewhere classified; E66.09 Other obesity due to excess calories; Z79.899 Other long term (current) drug therapy; Z68.32 Body mass index [BMI] 32.0-32.9, adult ==

== ENCOUNTER → 2021-02-07 | Outpatient (CLI) | payer OTHER | LOC: WCC 08:47 | DX: E11.621 Type 2 diabetes mellitus with foot ulcer (principal); E11.622 Type 2 diabetes mellitus with other skin ulcer; I87.2 Venous insufficiency (chronic) (peripheral); L97.425 Non-pressure chronic ulcer of left heel and midfoot with muscle involvement without evidence of necrosis; L97.922 Non-pressure chronic ulcer of unspecified part of left lower leg with fat layer exposed; G47.30 Sleep apnea, unspecified; I10 Essential (primary) hypertension; Z79.899 Other long term (current) drug therapy ==

== ENCOUNTER → 2021-02-11 | Outpatient (CLI) | payer OTHER | LOC: WCC 08:36 | DX: E11.621 Type 2 diabetes mellitus with foot ulcer (principal); L97.525 Non-pressure chronic ulcer of other part of left foot with muscle involvement without evidence of necrosis; L97.922 Non-pressure chronic ulcer of unspecified part of left lower leg with fat layer exposed; L97.425 Non-pressure chronic ulcer of left heel and midfoot with muscle involvement without evidence of necrosis; L97.423 Non-pressure chronic ulcer of left heel and midfoot with necrosis of muscle; M86.672 Other chronic osteomyelitis, left ankle and foot; I10 Essential (primary) hypertension; E66.09 Other obesity due to excess calories; I89.0 Lymphedema, not elsewhere classified; Z68.32 Body mass index [BMI] 32.0-32.9, adult ==

== ENCOUNTER → 2021-02-13 | Outpatient (CLI) | payer OTHER | LOC: OPSV 14:00 | DX: I87.2 Venous insufficiency (chronic) (peripheral) (principal); L97.423 Non-pressure chronic ulcer of left heel and midfoot with necrosis of muscle; I89.0 Lymphedema, not elsewhere classified | CPT/HCPCS: G0463 ==

== ENCOUNTER → 2021-02-18 | Outpatient (CLI) | payer OTHER | END | disposition home or self-care (01) | LOC: WCC 08:29 | DX: E11.621 Type 2 diabetes mellitus with foot ulcer (principal); L97.425 Non-pressure chronic ulcer of left heel and midfoot with muscle involvement without evidence of necrosis; L97.922 Non-pressure chronic ulcer of unspecified part of left lower leg with fat layer exposed; I87.2 Venous insufficiency (chronic) (peripheral); I89.0 Lymphedema, not elsewhere classified; M86.672 Other chronic osteomyelitis, left ankle and foot; I10 Essential (primary) hypertension; E66.09 Other obesity due to excess calories; Z68.32 Body mass index [BMI] 32.0-32.9, adult; Z79.899 Other long term (current) drug therapy ==

== ENCOUNTER → 2021-02-21 | Outpatient (CLI) | payer OTHER | END | disposition home or self-care (01) | LOC: WCC 13:36 | PROC: 2W1RX6Z Compression of Left Lower Leg using Pressure Dressing (ICD-10-PCS; principal; 2021-02-21) | DX: E11.621 Type 2 diabetes mellitus with foot ulcer (principal); L97.425 Non-pressure chronic ulcer of left heel and midfoot with muscle involvement without evidence of necrosis; E11.622 Type 2 diabetes mellitus with other skin ulcer; L97.822 Non-pressure chronic ulcer of other part of left lower leg with fat layer exposed; G47.30 Sleep apnea, unspecified; I10 Essential (primary) hypertension; Z79.899 Other long term (current) drug therapy ==

== ENCOUNTER → 2021-02-25 | Outpatient (CLI) | payer OTHER | LOC: WCC 08:54 | DX: E11.621 Type 2 diabetes mellitus with foot ulcer (principal); L97.425 Non-pressure chronic ulcer of left heel and midfoot with muscle involvement without evidence of necrosis; L97.822 Non-pressure chronic ulcer of other part of left lower leg with fat layer exposed; L97.812 Non-pressure chronic ulcer of other part of right lower leg with fat layer exposed; E66.09 Other obesity due to excess calories; I89.0 Lymphedema, not elsewhere classified; I10 Essential (primary) hypertension; M86.672 Other chronic osteomyelitis, left ankle and foot; I87.2 Venous insufficiency (chronic) (peripheral) ==

== ENCOUNTER → 2021-02-28 | Outpatient (CLI) | payer OTHER | LOC: WCC 08:43 | DX: I89.0 Lymphedema, not elsewhere classified (principal); S91.302A Unspecified open wound, left foot, initial encounter; S81.801A Unspecified open wound, right lower leg, initial encounter; X58.XXXA Exposure to other specified factors, initial encounter ==

== ENCOUNTER → 2021-03-04 | Outpatient (CLI) | payer OTHER | LOC: WCC 08:08 | DX: E11.621 Type 2 diabetes mellitus with foot ulcer (principal); L97.425 Non-pressure chronic ulcer of left heel and midfoot with muscle involvement without evidence of necrosis; L97.822 Non-pressure chronic ulcer of other part of left lower leg with fat layer exposed; L97.812 Non-pressure chronic ulcer of other part of right lower leg with fat layer exposed; E66.09 Other obesity due to excess calories; I89.0 Lymphedema, not elsewhere classified; I10 Essential (primary) hypertension; M86.672 Other chronic osteomyelitis, left ankle and foot; I87.2 Venous insufficiency (chronic) (peripheral) ==

== ENCOUNTER → 2021-03-07 | Outpatient (CLI) | payer OTHER | LOC: WCC 08:47 | DX: E11.621 Type 2 diabetes mellitus with foot ulcer (principal); L97.425 Non-pressure chronic ulcer of left heel and midfoot with muscle involvement without evidence of necrosis; L97.922 Non-pressure chronic ulcer of unspecified part of left lower leg with fat layer exposed; L97.819 Non-pressure chronic ulcer of other part of right lower leg with unspecified severity; I10 Essential (primary) hypertension ==

== ENCOUNTER → 2021-03-11 | Outpatient (CLI) | payer OTHER | LOC: WCC 09:16 | DX: E11.621 Type 2 diabetes mellitus with foot ulcer (principal); E11.622 Type 2 diabetes mellitus with other skin ulcer; I87.2 Venous insufficiency (chronic) (peripheral); L97.425 Non-pressure chronic ulcer of left heel and midfoot with muscle involvement without evidence of necrosis; L97.922 Non-pressure chronic ulcer of unspecified part of left lower leg with fat layer exposed; L97.912 Non-pressure chronic ulcer of unspecified part of right lower leg with fat layer exposed; E66.09 Other obesity due to excess calories; E11.69 Type 2 diabetes mellitus with other specified complication; M86.672 Other chronic osteomyelitis, left ankle and foot; I89.0 Lymphedema, not elsewhere classified; I10 Essential (primary) hypertension; Z68.32 Body mass index [BMI] 32.0-32.9, adult; Z79.899 Other long term (current) drug therapy ==

== ENCOUNTER → 2021-03-18 | Outpatient (CLI) | payer OTHER ==
[~2021-03-18] MED LIST changes: +LASIX20 MG PO
== END ==
LOC: WCC 08:15
DX: E11.621 Type 2 diabetes mellitus with foot ulcer (principal); L97.425 Non-pressure chronic ulcer of left heel and midfoot with muscle involvement without evidence of necrosis; I87.2 Venous insufficiency (chronic) (peripheral); L97.922 Non-pressure chronic ulcer of unspecified part of left lower leg with fat layer exposed; L97.812 Non-pressure chronic ulcer of other part of right lower leg with fat layer exposed; I89.0 Lymphedema, not elsewhere classified; I10 Essential (primary) hypertension; M86.672 Other chronic osteomyelitis, left ankle and foot; E66.09 Other obesity due to excess calories; Z68.32 Body mass index [BMI] 32.0-32.9, adult; Z79.899 Other long term (current) drug therapy

== ENCOUNTER → 2021-03-20 | Outpatient (CLI) | payer OTHER ==
[~2021-03-20] MED LIST changes: -LASIX20 MG PO
== END ==
LOC: WCC 08:10
DX: I89.0 Lymphedema, not elsewhere classified (principal); S91.302A Unspecified open wound, left foot, initial encounter; S81.801A Unspecified open wound, right lower leg, initial encounter; X58.XXXA Exposure to other specified factors, initial encounter

== ENCOUNTER → 2021-03-25 | Outpatient (CLI) | payer OTHER | LOC: WCC 08:24 | DX: E11.621 Type 2 diabetes mellitus with foot ulcer (principal); I87.2 Venous insufficiency (chronic) (peripheral); L97.425 Non-pressure chronic ulcer of left heel and midfoot with muscle involvement without evidence of necrosis; L97.922 Non-pressure chronic ulcer of unspecified part of left lower leg with fat layer exposed; L97.812 Non-pressure chronic ulcer of other part of right lower leg with fat layer exposed; E11.69 Type 2 diabetes mellitus with other specified complication; M86.672 Other chronic osteomyelitis, left ankle and foot; E66.09 Other obesity due to excess calories; I89.0 Lymphedema, not elsewhere classified; I10 Essential (primary) hypertension; Z68.32 Body mass index [BMI] 32.0-32.9, adult; Z79.899 Other long term (current) drug therapy ==

== ENCOUNTER → 2021-03-28 | Outpatient (CLI) | payer OTHER | END | disposition home or self-care (01) | LOC: WCC 07:42 | DX: I87.2 Venous insufficiency (chronic) (peripheral) (principal); L97.922 Non-pressure chronic ulcer of unspecified part of left lower leg with fat layer exposed; L97.812 Non-pressure chronic ulcer of other part of right lower leg with fat layer exposed; I10 Essential (primary) hypertension; E11.9 Type 2 diabetes mellitus without complications; G47.30 Sleep apnea, unspecified ==

== ENCOUNTER → 2021-04-01 | Outpatient (CLI) | payer OTHER | LOC: WCC 09:32 | DX: E11.621 Type 2 diabetes mellitus with foot ulcer (principal); L97.425 Non-pressure chronic ulcer of left heel and midfoot with muscle involvement without evidence of necrosis; L97.822 Non-pressure chronic ulcer of other part of left lower leg with fat layer exposed; L97.812 Non-pressure chronic ulcer of other part of right lower leg with fat layer exposed; E66.09 Other obesity due to excess calories; I89.0 Lymphedema, not elsewhere classified; I10 Essential (primary) hypertension; M86.672 Other chronic osteomyelitis, left ankle and foot; I87.2 Venous insufficiency (chronic) (peripheral); Z91.19 Patient's noncompliance with other medical treatment and regimen ==

== ENCOUNTER → 2021-04-04 | Outpatient (CLI) | payer OTHER | END | disposition home or self-care (01) | LOC: WCC 09:47 | PROC: 2W1QX6Z Compression of Right Lower Leg using Pressure Dressing (ICD-10-PCS; principal; 2021-04-04) | PROC: 2W1RX6Z Compression of Left Lower Leg using Pressure Dressing (ICD-10-PCS; 2021-04-04) | DX: E11.621 Type 2 diabetes mellitus with foot ulcer (principal); L97.425 Non-pressure chronic ulcer of left heel and midfoot with muscle involvement without evidence of necrosis; L97.822 Non-pressure chronic ulcer of other part of left lower leg with fat layer exposed; L97.812 Non-pressure chronic ulcer of other part of right lower leg with fat layer exposed; I10 Essential (primary) hypertension; G47.30 Sleep apnea, unspecified; Z79.899 Other long term (current) drug therapy ==

== ENCOUNTER → 2021-04-15 | Outpatient (CLI) | payer OTHER ==
[~2021-04-15] MED LIST changes: +LASIX20 MG PO
== END | disposition home or self-care (01) ==
LOC: WCC 08:33
DX: E11.621 Type 2 diabetes mellitus with foot ulcer (principal); L97.425 Non-pressure chronic ulcer of left heel and midfoot with muscle involvement without evidence of necrosis; I87.2 Venous insufficiency (chronic) (peripheral); L97.922 Non-pressure chronic ulcer of unspecified part of left lower leg with fat layer exposed; L97.812 Non-pressure chronic ulcer of other part of right lower leg with fat layer exposed; I89.0 Lymphedema, not elsewhere classified; M86.672 Other chronic osteomyelitis, left ankle and foot; I10 Essential (primary) hypertension; E66.09 Other obesity due to excess calories; Z79.2 Long term (current) use of antibiotics; Z79.899 Other long term (current) drug therapy; Z68.32 Body mass index [BMI] 32.0-32.9, adult

== ENCOUNTER 2021-04-18 15:02 | Inpatient (IN) | payer OTHER ==
[~2021-04-18] VITALS: Ht 175.3 cm; Wt 119.3 kg
[~2021-04-18 15:02] MED LIST changes: -LASIX20 MG PO
[2021-04-18 16:10] LABS: HEMOGLOBIN 8.8 gm/dl (14.0-17.5); RED BLOOD COUNT 3.17 M/UL (4.20-5.50); WHITE BLOOD COUNT 8.4 K/UL (4.5-11.0)
[2021-04-18] MEDS ORDERED: LASIX20 MG PO (18:35)
[2021-04-19 07:42] LABS: HEMOGLOBIN 7.6 gm/dl (14.0-17.5); WHITE BLOOD COUNT 7.9 K/UL (4.5-11.0)
[2021-04-19 07:43] LABS: RED BLOOD COUNT 2.69 M/UL (4.20-5.50)
--- NOTE | 2021-04-19 13:15 | NUR ---
04/19/21 1310 REPORT CALLED TO EMMANUEL TO BE TRANSFERRED TO ROOM [id number]
[2021-04-20 09:20] LABS: HEMOGLOBIN 7.8 gm/dl (14.0-17.5); RED BLOOD COUNT 2.75 M/UL (4.20-5.50)
--- NOTE | 2021-04-21 05:29 | NUR ---
0500- Patient's wound dressings to both legs were saturated from the legs weeping. Cleaned the bilateral lower legs with normal saline and used betadine swab to left lower heel and wrapped up both legs with non adherent pads, abd pads, 4x4 and gauze wrap with soft tape. Also completed a total bed change.
[2021-04-21 05:52] LABS: HEMOGLOBIN 8.1 gm/dl (14.0-17.5); RED BLOOD COUNT 2.91 M/UL (4.20-5.50); WHITE BLOOD COUNT 7.8 K/UL (4.5-11.0)
[2021-04-22 07:11] LABS: HEMOGLOBIN 7.9 gm/dl (14.0-17.5); RED BLOOD COUNT 2.83 M/UL (4.20-5.50); WHITE BLOOD COUNT 7.3 K/UL (4.5-11.0)
[2021-04-23 04:17] LABS: HEMOGLOBIN 7.9 gm/dl (14.0-17.5); RED BLOOD COUNT 2.77 M/UL (4.20-5.50); WHITE BLOOD COUNT 7.6 K/UL (4.5-11.0)
--- NOTE | 2021-04-23 10:42 | NUR ---
with dr. crowley rounds this morning reported of patient bilateral lower extrimities wound and complaints of left side abdomen itching. dr. crowley acknowledged
--- NOTE | 2021-04-23 11:25 | NUR ---
patient up in chair with assistance from PT, watching tv, bilateral legs elevated and looking comfortable.
[2021-04-24 07:47] LABS: HEMOGLOBIN 7.5 gm/dl (14.0-17.5); RED BLOOD COUNT 2.78 M/UL (4.20-5.50); WHITE BLOOD COUNT 6.2 K/UL (4.5-11.0)
[2021-04-24 11:14] LABS: HBSAG SCREEN Negative (Negative); HEP B CORE AB, TOT Negative (Negative); HEP C VIRUS AB <0.1 (0.0-0.9)
[2021-04-24 13:14] LABS: ANTI-DSDNA ANTIBODIES 2 IU/mL (0-9)
[2021-04-24 17:09] LABS: ATYPICAL PANCA <1:20 titer (Neg:<1:20); CYTOPLASMIC (C-ANCA) <1:20 titer (Neg:<1:20); PERINUCLEAR (P-ANCA) <1:20 titer (Neg:<1:20)
[2021-04-25 01:09] LABS: ANTISTREPTOLYSIN O AB 29.2 IU/mL (0.0-200.0); COMPLEMENT C3, SERUM 115 mg/dL (82-167); COMPLEMENT C4, SERUM 25 mg/dL (12-38)
[2021-04-25 04:50] LABS: HEMOGLOBIN 8.1 gm/dl (14.0-17.5); RED BLOOD COUNT 2.89 M/UL (4.20-5.50); WHITE BLOOD COUNT 6.1 K/UL (4.5-11.0)
[2021-04-25 15:12] LABS: A/G RATIO 0.9 (0.7-1.7); ALBUMIN 2.7 g/dL (2.9-4.4); ALPHA-1-GLOBULIN 0.3 g/dL (0.0-0.4); ALPHA-2-GLOBULIN 0.7 g/dL (0.4-1.0); BETA GLOBULIN 0.9 g/dL (0.7-1.3); GAMMA GLOBULIN 1.3 g/dL (0.4-1.8); GLOBULIN, TOTAL 3.2 g/dL (2.2-3.9); IMMUNOFIXATION RESULT, SERUM Comment: (.); IMMUNOGLOBULIN A, QN, SERUM 652 mg/dL (61-437); IMMUNOGLOBULIN G, QN, SERUM 1309 mg/dL (603-1613); IMMUNOGLOBULIN M, QN, SERUM 51 mg/dL (15-143); M-SPIKE Not Observed g/dL (Not Observed); PROTEIN, TOTAL, SERUM 5.9 g/dL (6.0-8.5)
[2021-04-26 07:18] LABS: RED BLOOD COUNT 2.94 M/UL (4.20-5.50); WHITE BLOOD COUNT 6.6 K/UL (4.5-11.0)
[2021-04-27 04:49] LABS: HEMOGLOBIN 8.7 gm/dl (14.0-17.5); RED BLOOD COUNT 3.12 M/UL (4.20-5.50)
[2021-04-27 04:58] LABS: WHITE BLOOD COUNT 4.8 K/UL (4.5-11.0)
[2021-04-28 05:37] LABS: HEMOGLOBIN 8.4 gm/dl (14.0-17.5); RED BLOOD COUNT 2.98 M/UL (4.20-5.50); WHITE BLOOD COUNT 4.4 K/UL (4.5-11.0)
[2021-04-29 05:59] LABS: RED BLOOD COUNT 2.82 M/UL (4.20-5.50)
[2021-04-29 06:04] LABS: WHITE BLOOD COUNT 2.5 K/UL (4.5-11.0)
[2021-04-30 03:45] LABS: HEMOGLOBIN 7.9 gm/dl (14.0-17.5); RED BLOOD COUNT 2.95 M/UL (4.20-5.50); WHITE BLOOD COUNT 3.2 K/UL (4.5-11.0)
[2021-05-01 03:54] LABS: HEMOGLOBIN 8.2 gm/dl (14.0-17.5); RED BLOOD COUNT 2.98 M/UL (4.20-5.50); WHITE BLOOD COUNT 3.4 K/UL (4.5-11.0)
[2021-05-02 06:38] LABS: HEMOGLOBIN 8.1 gm/dl (14.0-17.5); RED BLOOD COUNT 2.9 M/UL (4.20-5.50); WHITE BLOOD COUNT 3.5 K/UL (4.5-11.0)
[2021-05-03 06:28] LABS: HEMOGLOBIN 8.7 gm/dl (14.0-17.5); RED BLOOD COUNT 3.04 M/UL (4.20-5.50); WHITE BLOOD COUNT 3.2 K/UL (4.5-11.0)
[2021-05-04 04:32] LABS: HEMOGLOBIN 8.5 gm/dl (14.0-17.5); RED BLOOD COUNT 3.05 M/UL (4.20-5.50)
[2021-05-05 03:28] LABS: HEMOGLOBIN 8.1 gm/dl (14.0-17.5); RED BLOOD COUNT 2.92 M/UL (4.20-5.50); WHITE BLOOD COUNT 3.7 K/UL (4.5-11.0)
[2021-05-07 02:58] LABS: HEMOGLOBIN 8.6 gm/dl (14.0-17.5); RED BLOOD COUNT 3.07 M/UL (4.20-5.50)
[2021-05-07 03:01] LABS: WHITE BLOOD COUNT 5.1 K/UL (4.5-11.0)
[2021-05-09] MEDS ORDERED: INVANZ 1 GM VIAL1 GM IV (09:06)
[2021-05-09] MEDS ORDERED: BUDESONIDE0.5 MG/2 M NEB (09:06)
[2021-05-09] MEDS ORDERED: IPRAT-ALBUT 0.5-3 ML NEB (09:06)
[2021-05-09] MEDS ORDERED: LOPRESSOR 25 MG25 MG PO (09:06)
[2021-05-09] MEDS ORDERED: TYLENOL 8 HOUR650 MG PO (09:06)
[2021-05-09] MEDS ORDERED: BUMETANIDE1 MG PO (09:06)
[2021-05-09] MEDS ORDERED: GLUCOPHAGE 850850 MG PO (09:11)
[2021-05-09] MEDS ORDERED: THERAGRAN M TAB1 EA PO (09:11)
[2021-05-09] MEDS ORDERED: LOVENOX30 MG/0.3 SQ (09:19)
--- NOTE | 2021-05-09 13:12 | NUR ---
05/09/21 1300 REPORT CALLED TO DONNIE AT [facility]
--- NOTE | 2021-05-09 13:18 | NUR ---
05/09/21 1315 REPORT CALLED TO GIOVANNA AT [facility]
--- NOTE | 2021-05-09 16:31 | NUR ---
05/09/21 1550 [facility] CALLED AGAIN TO CHECK ON ETA
--- NOTE | 2021-05-09 19:02 | NUR ---
05/09/211899 EMS REFUSED TO TAKE ELECTRIC WHEELCHAIR WITH PATIENT TO [facility] IN [facility], COMMUTATOR REPAIRER RACHEL NOTIFIED. BRING TO NURSING STATION AND PUT PT LABEL ON IT AND THEY WOULD TAKE CARE OF IT TOMORROW
== END 2021-05-09 18:35 | DRG 682 ==
LOC: ER1 15:02 → M/S 16:24 → CDU 16:24 → 3 EAST 16:24 → M/S 04-19 15:43
PROVIDERS: Internal Medicine; Internal Medicine Nephrology; Preventive Medicine Occupational Medicine; ADMIT Family Medicine
PROC: B24BZZZ Ultrasonography of Heart with Aorta (ICD-10-PCS; principal; 2021-04-29)
DX: N17.9 Acute kidney failure, unspecified (principal); I50.33 Acute on chronic diastolic (congestive) heart failure; E43 Unspecified severe protein-calorie malnutrition; Z20.822 Contact with and (suspected) exposure to COVID-19; J96.01 Acute respiratory failure with hypoxia; M86.672 Other chronic osteomyelitis, left ankle and foot; I13.0 Hypertensive heart and chronic kidney disease with heart failure and stage 1 through stage 4 chronic kidney disease, or unspecified chronic kidney disease; E87.0 Hyperosmolality and hypernatremia; Z16.24 Resistance to multiple antibiotics; E87.2 Acidosis; L03.116 Cellulitis of left lower limb; L03.115 Cellulitis of right lower limb; E87.3 Alkalosis; G47.33 Obstructive sleep apnea (adult) (pediatric); E11.69 Type 2 diabetes mellitus with other specified complication; E66.9 Obesity, unspecified; I89.0 Lymphedema, not elsewhere classified; I08.1 Rheumatic disorders of both mitral and tricuspid valves; E87.5 Hyperkalemia; F41.9 Anxiety disorder, unspecified; F32.9 Major depressive disorder, single episode, unspecified; R53.81 Other malaise; E11.21 Type 2 diabetes mellitus with diabetic nephropathy; E11.22 Type 2 diabetes mellitus with diabetic chronic kidney disease; N18.30 Chronic kidney disease, stage 3 unspecified; E87.6 Hypokalemia; L08.89 Other specified local infections of the skin and subcutaneous tissue; D63.1 Anemia in chronic kidney disease; Z96.643 Presence of artificial hip joint, bilateral; B96.5 Pseudomonas (aeruginosa) (mallei) (pseudomallei) as the cause of diseases classified elsewhere; Z86.14 Personal history of Methicillin resistant Staphylococcus aureus infection; Z79.4 Long term (current) use of insulin; Z98.890 Other specified postprocedural states; Z99.3 Dependence on wheelchair; Z82.49 Family history of ischemic heart disease and other diseases of the circulatory system; Z83.3 Family history of diabetes mellitus; Z68.35 Body mass index [BMI] 35.0-35.9, adult
CPT/HCPCS: ECHO; 36415; 36600; 70450; 71045; 73630; 73718; 80048; 80053; 81001; 82570; 82728; 82784; 82803; 82962; 83036; 83520; 83540; 83550; 83605; 83735; 83880; 83883; 84132; 84133; 84155; 84156; 84165; 84300; 85025; 85027; 85652; 86038; 86060; 86140; 86160; 86162; 86225; 86256; 86334; 86704; 86706; 86708; 86803; 87040; 87070; 87081; 87086; 87205; 87340; 89050; 93005; 93306; 94640; 94664; 94760; 96374; 97110; 97110-GP-CQ; 97116-GP-CQ; 97161; 97166; 97530; 97530-GP-CQ; 99284; A6212; J0360; J1120; J1335; J1644; J1650; J1940; J2185; J2405; J3370; J7030; P9047; U0002

== ENCOUNTER → 2021-04-18 | Outpatient (CLI) | payer OTHER | LOC: WCC 07:55 | DX: E11.621 Type 2 diabetes mellitus with foot ulcer (principal); L97.425 Non-pressure chronic ulcer of left heel and midfoot with muscle involvement without evidence of necrosis; I89.0 Lymphedema, not elsewhere classified; E66.09 Other obesity due to excess calories; M86.672 Other chronic osteomyelitis, left ankle and foot; I87.2 Venous insufficiency (chronic) (peripheral); I10 Essential (primary) hypertension | CPT/HCPCS: G0463 ==